=== PATIENT | female | born 1935 | race Caucasian/White ===

== ENCOUNTER → 2016-12-31 | Outpatient (CLI) | payer OTHER ==
[~2016-12-31] MED LIST: ASPI81TA28 PO; BISO5TAB3 PO; FMR25 PO; GABA-113 PO; ISOS-11 PO; LOSA50TA6 PO; LPT40 PO; NITRSPR6 PO
--- NOTE | 2016-12-31 10:15 | DIAGNOSTIC IMAGING REPORT ---
BRAIN WITHOUT CONTRAST HISTORY: 81 years-old Female HEADACHE acute headache with dizziness and loss of balance. History of breast cancer and melanoma COMPARISON: PET CT 04/22/2014. TECHNIQUE: Multiplanar multisequence MRI the brain was obtained without contrast FINDINGS: There is no restricted diffusion to suggest acute ischemia. Lobular morphology of the pituitary gland measures up to 1.2 x 1.7 x 1.9 cm. This demonstrates isointense T1 signal and slightly increased T1 signal suggesting underlying pituitary lesion. There is no abutment or displacement of the optic chiasm. No invasion of the adjacent structures identified. There is mild expansion of the sella. No cerebellar tonsillar herniation. No acute intracranial hemorrhage, midline shift, abnormal extra-axial collections or hydrocephalus. There is mild atrophy. Areas of periventricular, subcortical and deep white matter T2/FLAIR signal hyperintensities suggest chronic microvascular ischemic changes. The major flow voids at the level the skull base are patent. Remote lacunar infarctions involve the basal ganglia. Mastoid air cells and middle ear cavities are clear. Mild to moderate mucoperiosteal thickening of the left maxillary sinus. Mild ethmoid sinus disease also noted. The scalp and soft tissues are unremarkable. IMPRESSION: 1. No acute intracranial abnormality identified. No acute ischemia or hemorrhage. 2. Atrophy with chronic microvascular ischemic changes. 3. Lobular morphology of the pituitary gland overall measuring up to 1.9 cm suggests underlying pituitary mass lesion such as a macroadenoma among other etiologies. Follow-up MRI pituitary mass protocol with and without IV contrast is recommended to further evaluate. 4. Maxillary and ethmoid sinus disease as above. The above report was generated using voice recognition software. It may contain grammatical, syntax or spelling errors. Electronically signed by: Myron Walters M.D. 12/31/2016 10:13 AM Dictated Date/Time: 12/31/2016 10:06 AM
== END | disposition home or self-care (01) ==
LOC: C.MRIBC 07:51
PROVIDERS: ATTEND Psychiatry & Neurology Neurology
DX: R51 Headache (principal)

== ENCOUNTER → 2017-01-27 | Outpatient (CLI) | payer OTHER ==
[~2017-01-27] MED LIST changes: +GADAVIST IV PRN
--- NOTE | 2017-01-27 13:02 | DIAGNOSTIC IMAGING REPORT ---
BRAIN COMBO FOR PITUITARY CLINICAL HISTORY: Pituitary lesion abnormal MRI TECHNIQUE: Multi axial MRI acquisition. Specific images of the pituitary COMPARISON STUDY: 12/31/2016 FINDINGS: Diffusion-weighted images are negative for an acute ischemic event. Moderate chronic small vessel change of the periventricular deep white matter regions. Internal artery canals are symmetric. Enlarged heterogeneous pituitary maximum dimensions are 1.8 x 1.7 cm. This potential partial invasion invasion to the right cavernous sinus. Major vascular flow-voids appear intact. Postcontrast images in a dynamic fashion show him 1.6 cm subtle decrease in enhancement of the right central pituitary and base of the pituitary stock. This suggestive of pituitary macroadenoma. No additional postcontrast enhancement is identified. IMPRESSION: 1. Specific images of the pituitary confirm the presence of a 1.6 cm nodule showing a slight decrease in enhancement compared to the surrounding pituitary tissue. 2. Maximum dimension of the pituitary including included nodule is 1.8 x 1.7 cm. 3. 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 There is potential partial invasion of the right cavernous sinus, and partial involvement of the base of the pituitary stock. 5. Remainder the brain is unchanged from the prior study and shows no additional focus of postcontrast enhancement. 6. Stable moderate chronic small vessel change throughout both cerebral hemispheres. The above report was generated using voice recognition software. It may contain grammatical, syntax or spelling errors. Electronically signed by: Jose Perez M.D. 01/27/2017 1:00 PM Dictated Date/Time: 01/27/2017 12:54 PM
== END | disposition home or self-care (01) ==
LOC: C.MRIBC 11:15
PROVIDERS: ATTEND Psychiatry & Neurology Neurology
DX: R93.8 Abnormal findings on diagnostic imaging of other specified body structures (principal); E23.6 Other disorders of pituitary gland

== ENCOUNTER → 2017-03-11 | Outpatient (CLI) | payer OTHER ==
[~2017-03-11] MED LIST changes: -GADAVIST IV PRN
--- NOTE | 2017-03-14 15:50 | MAMMOGRAPHY REPORT ---
UNILATERAL RIGHT DIGITAL SCREENING MAMMOGRAM TOMOSYNTHESIS WITH CAD: 03/11/2017 CLINICAL HISTORY: Asymptomatic. Personal history of breast cancer. TECHNIQUE: Breast tomosynthesis in addition to standard 2D mammography was performed. Current study was also evaluated with a Computer Aided Detection (CAD) system. COMPARISON: Comparison is made to exams dated: 11/26/2015 mammogram and 03/15/2014 mammogram - [facility]. BREAST COMPOSITION: There are scattered areas of fibroglandular density in the right breast. FINDINGS: There are no suspicious masses, calcifications, or areas of architectural distortion noted in the right breast. There has been no significant interval change compared to prior exams. Status post left mastectomy. IMPRESSION: ACR BI-RADS CATEGORY 1: NEGATIVE There is no mammographic evidence of malignancy in the right breast. A 1 year screening mammogram is recommended. The patient will receive written notification of the results. Approximately 10% of breast cancers are not detected with mammography. A negative mammographic report should not delay biopsy if a clinically suggestive mass is present. Pooja South M.D. ah/:03/11/2017 14:28:[address] Judge: Leslie MESA)(Aurea), [facility] letter sent: Normal 1/2 BI-RADS Code: ACR BI-RADS Category 1: Negative
== END | disposition home or self-care (01) ==
LOC: C.MAMM 14:07
PROVIDERS: ATTEND Neuromusculoskeletal Medicine & OMM
DX: Z12.31 Encounter for screening mammogram for malignant neoplasm of breast (principal)

== ENCOUNTER → 2017-03-24 | Outpatient (CLI) | payer OTHER ==
--- NOTE | 2017-03-24 14:30 | MAMMOGRAPHY REPORT ---
ULTRASOUND OF RIGHT BREAST: 03/24/2017 CLINICAL HISTORY: The patient reports intermittent right medial and lateral breast pain for years. S he denies any palpable lumps or other complaints. History of left mastectomy. COMPARISON: Comparison is made to exams dated: 11/26/2015 mammogram, 03/11/2017 mammogram, and 015 mammogram - [facility]. TECHNIQUE: Real-time targeted ultrasound of the right breast was performed. FINDINGS: Real-time, high-resolution targeted ultrasound was performed of the areas of intermittent pain pointed out by the patient, in the right medial breast at approximately 3 to 4:00 far medially, approximately 10 cm from the nipple, as well as in the right lateral breast far laterally. Sonograph ically normal tissue is seen in these regions, without evidence of a mass or other suspicious sonogra phic abnormality. IMPRESSION: ACR BI-RADS CATEGORY 1: NEGATIVE No suspicious sonographic abnormalities at the sites of right breast pain pointed out by the patient. There is no sonographic evidence of malignancy. Recommend clinical follow-up for intermittent righ t breast pain, and recommend routine screening mammograms of the right breast 2018. The patient was verbally notified of the results with the assistance of a [employer] control operators supervisor over th e telephone. Pooja South M.D. /:03/24/2017 09:17:45 Employment Programs Analyst: Virgen MESA)(Aurea), [facility] letter sent: Normal 1/2 BI-RADS Code: ACR BI-RADS Category 1: Negative
== END | disposition home or self-care (01) ==
LOC: C.MAMM 08:46
PROVIDERS: ATTEND Internal Medicine Hematology & Oncology
DX: N64.4 Mastodynia (principal); Z85.3 Personal history of malignant neoplasm of breast

== ENCOUNTER → 2017-06-15 | Outpatient (CLI) | payer OTHER ==
[2017-06-15 14:38] LABS: HEMATOCRIT 31.3 % (37-47); HEMOGLOBIN 10.4 g/dL (12.0-16.0); MEAN CELL VOLUME 99.1 fL (80-100); MEAN CORPUSCULAR HEMOGLOBIN 32.9 pg (25-34); MEAN CORPUSCULAR HGB CONC 33.2 g/dl (32-36); MEAN PLATELET VOLUME 10.1 fL (7.4-10.4); PLATELET COUNT 249 K/uL (130-400); RED CELL DISTRIBUTION WIDTH CV 15.5 % (11.5-14.5); RED CELL DISTRIBUTION WIDTH SD 55.9 fL (36.4-46.3); WHITE BLOOD COUNT 5.04 K/uL (4.8-10.8)
[2017-06-15 14:48] LABS: AST/SGOT 19 U/L (15-37); BLOOD UREA NITROGEN 25 mg/dl (7-18); CALCIUM 8.5 mg/dl (8.5-10.1); CARBON DIOXIDE 27 mmol/L (21-32); GLUCOSE 100 mg/dl (70-99); POTASSIUM 4.3 mmol/L (3.5-5.1); SODIUM 139 mmol/L (136-145)
[2017-06-15 14:59] LABS: ALT/SGPT 25 U/L (12-78)
[2017-06-15 15:01] LABS: FOLLICLE STIMULAT HORMONE 69.84 IU/L; LUTEINIZING HORMONE 21.94 IU/L; PROLACTIN 58.43 ng/mL
== END | disposition home or self-care (01) ==
LOC: C.LAB1850 12:52
PROVIDERS: ATTEND Physician Assistant
DX: R93.8 Abnormal findings on diagnostic imaging of other specified body structures (principal); D35.2 Benign neoplasm of pituitary gland; I10 Essential (primary) hypertension; E78.5 Hyperlipidemia, unspecified; I20.9 Angina pectoris, unspecified

== ENCOUNTER 2018-10-27 22:11 | Observation (INO) ==
[2018-10-27] MEDS ORDERED: ASPIRIN 81 MG CHEW PO STA (22:43)
[2018-10-27] MEDS ORDERED: GI COCKTAIL ED USE PO ONE (22:43)
[2018-10-27] MEDS ORDERED: FAMOTIDINE 20MG/5ML IV PUSH IV STA (22:43)
[2018-10-27 23:09] LABS: Basophils # (auto) 0.01 K/uL (0-0.2); Basophils % (auto) 0.2 %; Eosinophils # (auto) 0.19 K/uL (0-0.5); Eosinophils % (auto) 4.1 %; Hematocrit (blood only) 33.3 % (37-47); Hemoglobin 10.9 g/dL (12.0-16.0); Immature Granulocytes # (auto) 0.01 K/uL (0.00-0.02); Immature Granulocytes % (auto) 0.2 %; Lymphocytes # (auto) 2.01 K/uL (1.2-3.4); Lymphocytes % (auto) 43.7 %; Mean Corpuscular Hgb Conc 32.7 g/dL (32-36); Mean Corpuscular Volume 100.3 fL (80-100); Mean Platelet Volume 9.8 fL (7.4-10.4); Monocytes # (auto) 0.16 K/uL (0.11-0.59); Monocytes % (auto) 3.5 %; Neutrophils # (auto) 2.22 K/uL (1.4-6.5); Neutrophils % (auto) 48.3 %; Platelet Count 224 K/uL (130-400); RDW Coefficient of Variation 15.3 % (11.5-14.5); RDW Standard Deviation 55.6 fL (36.4-46.3); Red Blood Count 3.32 M/uL (4.2-5.4)
[2018-10-27 23:28] LABS: Partial Thromboplastin Ratio 0.9; Partial Thromboplastin Time 23.5 Seconds (21.0-31.0); Prothrombin Time 10.3 Seconds (9.0-12.0)
[2018-10-27 23:32] LABS: Alanine Aminotransferase 20 U/L (12-78); Albumin Level 3.1 gm/dl (3.4-5.0); Aspartate Aminotransferase 17 U/L (15-37); BUN Creatinine Ratio 16.2 (10-20); Blood Urea Nitrogen 19 mg/dl (7-18); Calcium 8.5 mg/dl (8.5-10.1); Carbon Dioxide 27 mmol/L (21-32); Chloride 110 mmol/L (98-107); Creatinine Clr Calc Pharmacy 31.7 ml/min; Est GFR (African American) 49.6; Est GFR (Non-African American) 42.8; Glucose 123 mg/dl (70-99); Potassium 3.9 mmol/L (3.5-5.1); Sodium 141 mmol/L (136-145)
[2018-10-27 23:37] LABS: Albumin Globulin Ratio 0.6 (0.9-2); Alkaline Phosphatase 134 U/L (45-117); Bilirubin,Total 0.2 mg/dl (0.2-1); Globulin 4.8 gm/dl (2.5-4.0); Total Protein 7.9 gm/dl (6.4-8.2); Troponin I < 0.015 ng/ml (0-0.045)
--- NOTE | 2018-10-28 00:11 | Emergency Department Note ---
Entered by Zoila Dior acting as a scribe for History of Present Illness General Chief complaint: Chest Pain Stated complaint: CHEST PAIN Source: patient History of Present Illness Provider complaint: Chest Pain Onset (ago): hour(s) 6 Location: chest Radiation: extremity (Right arm ) Maximum Pain Intensity: 7 Quality: + dull Associated symptoms: + shortness of breath; no nausea/vomiting The patient is a 83 year old female who presents to the Emergency Room with complaints of dull chest pain that began about 6 hours prior. The patient requested her son as the senior technical business analyst. The patient's family states the patient's pain radiates from her chest down her left arm. The patient's family reports the patient is experiencing slight shortness of breath but denies any nausea/vomiting. The patient's family mentioned that she began experiencing this pain while walking but denies any falls. The patient's family noted that the patient has had pain like this before but the pain has never been this consistent. Home Medications Home Medications Medication Instructions Recorded Confirmed Type atorvastatin 40 mg PO HS #30 tab 11/10/17 10/27/18 Rx tramadol 50 mg PO TID PRN 04/10/18 10/27/18 History triamcinolone acetonide 1 applic TOPICAL DAILY 04/10/18 10/27/18 History bisoprolol fumarate 10 mg tablet 10 mg PO DAILY tab 09/15/18 10/27/18 History gabapentin 300 mg capsule 300 mg PO TID #360 cap 09/15/18 10/27/18 History letrozole 2.5 mg tablet 2.5 mg PO DAILY tab 09/15/18 10/27/18 History nifedipine ER 30 mg 30 mg PO BID 09/15/18 10/27/18 History tablet,extended release aspirin 81 mg tablet,delayed 81 mg PO DAILY #30 tab 10/17/18 10/27/18 Rx release isosorbide mononitrate 240 mg PO DAILY 10/27/18 10/27/18 History nitroglycerin [Nitrostat] 0.4 mg SUBLINGUAL UD PRN 10/27/18 10/27/18 History timolol maleate [Timoptic] 1 drp OPB BID 10/27/18 10/27/18 History Allergies Allergy/AdvReac Type Severity Reaction Status Date / Time ibuprofen Allergy Unknown Nausea Verified 10/27/18 23:01 Past Med/Surg History Medical History Arthritis (Acute) Benign colon polyp (Acute) Cutaneous skin tags (Acute) Diabetes mellitus, type 2 (Acute) Diverticular disease (Acute) Fracture of fifth metatarsal bone (Acute) HX: breast cancer (Acute) Hx of insomnia (Acute) Hyperlipidemia (Acute) Hypertension (Acute) Lumbar radiculopathy (Acute) Pulmonary fibrosis (Acute) Surgical History History of appendectomy (Acute) History of tonsillectomy (Acute) Hx of left mastectomy (Acute) Social History Preferred Language: British Communication Ability: Effective Communication Tools: IPad and Language Line Instructional Material Director Instructional Material Director Required: Yes Beliefs That Will Affect Care: None Current Living Situation: Alone Feels Safe at Home: Yes Smoking Status: Never smoker Second Hand Exposure: No ; Hx Alcohol Use: No Hx Substance Use: No Review of Systems See HPI for pertinent positives & negatives. and A total of 10 systems reviewed and were otherwise negative Physical Exam Vital Signs Vital Signs - 24 hr 10/27/18 22:11 10/27/18 22:36 10/27/18 23:11 Temperature 36.7 C Temperature Source Oral Sepsis Recent Fever Within 48 Hours No Sepsis New/Unexplained Change in Mental Status No Sepsis Action Taken by Nursing No Action Required Pulse Rate 66 Pulse Rate [Right Finger] 61 Pulse Rhythm [Right Finger] Regular Pulse Strength [Right Finger] Normal Respiratory Rate 16 20 Respiratory Effort / Characteristics Non-Labored Spontaneous Non-Labored Spontaneous Respiratory Depth Normal Normal Respiratory Pattern Regular Blood Pressure 156/72 H Blood Pressure [Right Arm] 167/86 H Blood Pressure Mean 100 Blood Pressure Mean [Right Arm] 113 Pulse Oximetry 94 94 Oxygen Delivery Method Room Air Room Air Room Air 10/28/18 00:05 Temperature Temperature Source Sepsis Recent Fever Within 48 Hours Sepsis New/Unexplained Change in Mental Status Sepsis Action Taken by Nursing Pulse Rate Pulse Rate [Right Finger] 61 Pulse Rhythm [Right Finger] Regular Pulse Strength [Right Finger] Normal Respiratory Rate 20 Respiratory Effort / Characteristics Respiratory Depth Normal Respiratory Pattern Blood Pressure Blood Pressure [Right Arm] 157/78 H Blood Pressure Mean Blood Pressure Mean [Right Arm] 104 Pulse Oximetry 94 Oxygen Delivery Method Room Air GENERAL: Awake, alert, in no distress. HENT: Normocephalic, atraumatic. EYES: Normal conjunctiva. Sclera non-icteric. RESPIRATORY: Clear to auscultation. No wheezes. Normal respiratory effort. CARDIAC: Normal rate. Normal rhythm. Extremities warm and well perfused. GI: Soft, non-distended. No tenderness to palpation. No rebound or guarding. RECTAL: Deferred. MUSCULOSKELETAL: Atraumatic. Chest examination reveals no tenderness. LOWER EXTREMITIES: Calves are equal size bilaterally and non-tender. Trace pedal edema. NEURO: Normal sensorium. No sensory or motor deficits noted. No facial droop. SKIN: Warm and dry. No rash or jaundice noted. Course 2236: Past medical records reviewed. The patient was evaluated in room A03. A complete history and physical exam was performed. 2356: I spoke with Dr. Soriano[facility] about the patient's case and he will accept the patient for further evaluation. Administered Medications Discontinued Medications Al Hydrox/Mg Hydrox/Simethicone () 1 dose PO ONE ONE Stop: 10/27/18 22:44 Last Admin: 10/27/18 23:11 Dose: Not Given Documented by: [id number] Aspirin (Aspirin Chew) 324 mg PO NOW STA Stop: 10/27/18 22:44 Last Admin: 10/27/18 23:10 Dose: 324 mg Documented by: [id number] Famotidine (Pepcid 20mg Iv Push) 20 mg IV ONE STA Stop: 10/27/18 22:44 Last Admin: 10/27/18 23:11 Dose: Not Given Documented by: [id number] Medical Decision Making Differential Diagnosis Differential diagnosis: Etiologies such as shingles, musculoskeletal pain, pericarditis, myocarditis, cardiac ischemia, pericardial tamponade, pneumonia, pneumothorax, pleural effusion, hemothorax, pleurisy, aortic pathology, pulmonary embolism, intra-abdominal process, as well as others were considered. Medical Records Attestation: I reviewed the patient's medical records. Home Medications Current Medication List: was personally reviewed by me Laboratory Data Result diagrams: 10/27/18 22:51 10/27/18 22:51 Lab Results 10/27/18 10/27/18 10/27/18 Range/Units 22:51 22:51 22:51 WBC 4.60 L (4.8-10.8) K/uL RBC 3.32 L (4.2-5.4) M/uL Hgb 10.9 L (12.0-16.0) g/dL Hct 33.3 L (37-47) % MCV 100.3 H (80-100) fL MCH 32.8 (25-34) pg MCHC 32.7 (32-36) g/dL RDW Std Deviation 55.6 H (36.4-46.3) fL RDW Coeff of [place] 15.3 H (11.5-14.5) % Plt Count 224 (130-400) K/uL MPV 9.8 (7.4-10.4) fL Immature Gran % (Auto) 0.2 % Neut % (Auto) 48.3 % Lymph % (Auto) 43.7 % Snyder % (Auto) 3.5 % Eos % (Auto) 4.1 % Baso % (Auto) 0.2 % Immature Gran # (Auto) 0.01 (0.00-0.02) K/uL Neut # (Auto) 2.22 (1.4-6.5) K/uL Lymph # (Auto) 2.01 (1.2-3.4) K/uL Snyder # (Auto) 0.16 (0.11-0.59) K/uL Eos # (Auto) 0.19 (0-0.5) K/uL Baso # (Auto) 0.01 (0-0.2) K/uL PT 10.3 (9.0-12.0) Seconds INR 1.0 (0.9-1.1) APTT 23.5 (21.0-31.0) Seconds PTT Ratio 0.9 Sodium 141 (136-145) mmol/L Potassium 3.9 (3.5-5.1) mmol/L Chloride 110 H (98-107) mmol/L Carbon Dioxide 27 (21-32) mmol/L Anion Gap 4.0 (3-11) BUN 19 H (7-18) mg/dl Creatinine 1.17 (0.6-1.2) mg/dl Est Cr Clr Drug Dosing 31.7 ml/min Est GFR ( Amer) 49.6 Est GFR (Non-Af Amer) 42.8 BUN/Creatinine Ratio 16.2 (10-20) Glucose 123 H (70-99) mg/dl Calcium 8.5 (8.5-10.1) mg/dl Total Bilirubin 0.2 (0.2-1) mg/dl AST 17 (15-37) U/L ALT 20 (12-78) U/L Alkaline Phosphatase 134 H (45-117) U/L Troponin I < 0.015 (0-0.045) ng/ml Total Protein 7.9 (6.4-8.2) gm/dl Albumin 3.1 L (3.4-5.0) gm/dl Globulin 4.8 H (2.5-4.0) gm/dl Albumin/Globulin Ratio 0.6 L (0.9-2) Lipase 181 (73-393) U/L Imaging Data Attestation: I personally reviewed and interpreted this imaging study as follows: My Impression: Decreased aeration. No bony abnormality. No pneumonia. No pneumothorax. Fibrotic changes. ECG Data Attestation: I personally reviewed and interpreted this ECG as follows: Indication: chest pain Rate (beats per minute): 70 Rhythm: normal sinus Findings: + other (Normal Intervals); no PVC, no ST depression and no ST elevation Comparison ECG Date: from (11/09/2017) Change: no significant change Blood Pressure Blood Pressure Findings: Elevated blood pressure Blood Pressure Disposition: Referred to patients primary care provider JESSICA Valdes Patient is an 83-year-old female with a history of diabetes, hypertension, hyperlipidemia presenting today with her son complaining of chest pain started around 4 PM while she was downtown walking. Pain is been fairly consistent. Does improve slightly with 4 doses of nitroglycerin prior to arrival but hen returns. Takes baby aspirin daily given full dose aspirin upon arrival here. No significant abdominal tenderness appreciated this time no trauma reported. Some radiation to the left arm is reported. Did review records showing evidence of a cardiac catheterization in March of this year with mild disease. Lower suspicion this represents acute dissection or PE at this time. Chest x-ray is no evidence of pneumonia or pneumothorax. Doubt rib fracture with trauma hx. Did order GI cocktail and Pepcid to see if that help with her symptoms but the patient declined these; still could have gastric component. EKG and troponin were completed as well as basic laboratory studies. Patient be is primarily British and did offer senior technical business analyst service so she felt most comfortable with her son translating. Anemia and leukopenia are stable. No evidence of acute hepatitis or pancreatitis. Troponin is undetectable at this point. Given the patient's age and prior cardiac risk factors does have a moderate risk heart score. Discussed with patient and son options at this point recommending observation stay overnight versus more risky continued outpatient follow-up. Patient states the pain seems different and longer than before and after discussion with her discussed with the hospitalist to observe her overnight and see if anything else can be found as cause. Impression & Plan Chest pain, unspecified Discharge Plan Visit Data Chief Complaint: Chest Pain Stated Complaint: CHEST PAIN ED Provider: Aldo Nick Discharge Problem: Chest pain, unspecified Patient Disposition: Home - Self-Care Forms Stand Alone Forms: [facility], Important Visit Information Prescriptions Prescriptions: No Action aspirin 81 mg tablet,delayed release (DR/EC) 81 mg PO DAILY Qty: 30 RF: 5 gabapentin 300 mg capsule 300 mg PO TID Qty: 360 RF: 0 bisoprolol fumarate 10 mg tablet 10 mg PO DAILY RF: 0 letrozole 2.5 mg tablet 2.5 mg PO DAILY RF: 0 atorvastatin 40 mg Tablet 40 mg PO HS Qty: 30 RF: 3 isosorbide mononitrate 120 mg tablet extended release 24 hr 240 mg PO DAILY RF: 0 nitroglycerin [Nitrostat] 0.4 mg tablet, sublingual 0.4 mg sublingual UD PRN (Reason: Chest Pain) RF: 0 timolol maleate [Timoptic] 0.5 % drops 1 drp OPB BID RF: 0 tramadol 50 mg Tablet 50 mg PO TID PRN (Reason: Pain) RF: 0 triamcinolone acetonide 0.1 % Cream 1 applic TOPICAL DAILY RF: 0 nifedipine 30 mg tablet extended release 30 mg PO BID RF: 0 Referrals Referrals: Kingston Garcia DO [Primary Care Provider] - Discharge Problem: Chest pain, unspecified Qualifiers: Chest pain type: unspecified Qualified Code(s): R07.9 - Chest pain, unspecified The scribe's documentation has been prepared under my direction and personally reviewed by me in its entirety. I confirm that the note above accurately reflects all work, treatment, procedures, and medical decision making performed by me.
[2018-10-28] MEDS ORDERED: MoRPHine SULFATE 2 MG/ML CARP IV PRN (00:23)
[2018-10-28] MEDS ORDERED: ONDANSETRON INJ 2 MG/ML 2 ML VIAL IV PRN (00:23)
[2018-10-28] MEDS ORDERED: TRAMADOL HCL 50 MG TABLET PO PRN (00:23)
[2018-10-28] MEDS ORDERED: ACETAMINOPHEN 325 MG TAB PO PRN (00:23)
--- NOTE | 2018-10-28 00:49 | History & Physical Report ---
Date of Service October 28, 2018 Assessment & Plan (1) Chest pain, unspecified: Obs tele serial trops prn NTG Cardiology consult. Continue isosorbide. Present on Admission?: Yes (2) CAD (coronary artery disease): Continue aspirin (3) Hypertension: Continue Bisoprolol and nifedipine (4) Hyperlipidemia: Continue atorvastatin. (5) Lumbar radiculopathy: Continue prn tramadol History of Present Illness 83 y/o Beninese speaking female presented to the Emergency Room with dull chest pain radiating to left arm of 6 hours duration. Patients son is present and is translating. She has been having exertional chest pain and SOB for 2-3 weeks. No F/C, cough, N/V/D, syncope or near syncope. As I am seeing the patient she reports that chest pain has resolved. Primary Care Provider: Kingston Garcia DO Allergies Allergy/AdvReac Type Severity Reaction Status Date / Time ibuprofen Allergy Unknown Nausea Verified 10/27/18 23:01 Home Medications Home Medications Medication Instructions Recorded Confirmed Type atorvastatin 40 mg PO HS #30 tab 11/10/17 10/27/18 Rx tramadol 50 mg PO TID PRN 04/10/18 10/27/18 History triamcinolone acetonide 1 applic TOPICAL DAILY 04/10/18 10/27/18 History bisoprolol fumarate 10 mg tablet 10 mg PO DAILY tab 09/15/18 10/27/18 History gabapentin 300 mg capsule 300 mg PO TID #360 cap 09/15/18 10/27/18 History letrozole 2.5 mg tablet 2.5 mg PO DAILY tab 09/15/18 10/27/18 History nifedipine ER 30 mg 30 mg PO BID 09/15/18 10/27/18 History tablet,extended release aspirin 81 mg tablet,delayed 81 mg PO DAILY #30 tab 10/17/18 10/27/18 Rx release isosorbide mononitrate 240 mg PO DAILY 10/27/18 10/27/18 History nitroglycerin [Nitrostat] 0.4 mg SUBLINGUAL UD PRN 10/27/18 10/27/18 History timolol maleate [Timoptic] 1 drp OPB BID 10/27/18 10/27/18 History Past Med/Surg History Medical History Arthritis (Acute) Benign colon polyp (Acute) Cutaneous skin tags (Acute) Diabetes mellitus, type 2 (Acute) Diverticular disease (Acute) Fracture of fifth metatarsal bone (Acute) HX: breast cancer (Acute) Hx of insomnia (Acute) Hyperlipidemia (Acute) Hypertension (Acute) Lumbar radiculopathy (Acute) Pulmonary fibrosis (Acute) Surgical History History of appendectomy (Acute) History of tonsillectomy (Acute) Hx of left mastectomy (Acute) Social History Preferred Language: Beninese Communication Ability: Effective Communication Ability Comment: Son was present and translated. Communication Tools: IPad, Language Line Loading Checker and Other Loading Checker Required: Yes Beliefs That Will Affect Care: None Current Living Situation: Alone Feels Safe at Home: Yes Smoking Status: Never smoker Second Hand Exposure: No ; Hx Alcohol Use: No Hx Substance Use: No Review of Systems Review of Systems: NEEDS EDITING Constitutional- no fever; no weight loss Eyes- no acute visual changes ENT- no sinus drainage; no pharyngitis Pulmonary- As in HPI Cardiac- As in HPI GI- no nausea, no vomiting, no diarrhea, no melena, no hematochezia - no dysuria, no hematuria Musculoskeletal- no arthralgias, no myalgias Derm- no rashes, no new skin lesions, no changing skin lesions Hematologic- no unusual bruising, no unusual bleeding Lymphatics- no adenopathy Endocrine- no polyuria or polydipsia; no heat or cold intolerance Neuro- no headaches, no focal neurologic symptoms Psych- no anxiety, no depression Physical Exam Physical Exam: NEEDS EDITING General- adult female, NAD Head- atraumatic Eyes- PERRL, EOMI, anicteric ENT- oropharynx clear Neck- supple, no JVD, no adenopathy, no thyromegaly. Lungs- clear to auscultation and percussion Heart- regular rhythm; no murmur, no gallop, no rub appreciated, no reproducible chest pain. Abdomen- normal bowel sounds, soft, nontender. Extremities- trace ankle edema, no calf tenderness; peripheral pulses intact Neuro- alert, oriented x 3; PERRL, EOMI; no facial palsy; no dysarthria. 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 Skin- warm & dry Results & Data Vital Signs (Past 12 Hours) Vital Signs Temp Pulse Pulse Resp BP BP Pulse Ox 10/28/18 00:05 61 20 157/78 H 94 10/27/18 23:11 61 20 167/86 H 94 10/27/18 22:11 36.7 C 66 16 156/72 H 94 Laboratory Results Laboratory Results WBC 4.60 K/uL (4.8-10.8) L 10/27/18 22:51 RBC 3.32 M/uL (4.2-5.4) L 10/27/18 22:51 Hgb 10.9 g/dL (12.0-16.0) L 10/27/18 22:51 Hct 33.3 % (37-47) L 10/27/18 22:51 MCV 100.3 fL (80-100) H 10/27/18 22:51 MCH 32.8 pg (25-34) 10/27/18 22:51 MCHC 32.7 g/dL (32-36) 10/27/18 22:51 RDW Std Deviation 55.6 fL (36.4-46.3) H 10/27/18 22:51 RDW Coeff of [place] 15.3 % (11.5-14.5) H 10/27/18 22:51 Plt Count 224 K/uL (130-400) 10/27/18 22:51 MPV 9.8 fL (7.4-10.4) 10/27/18 22:51 Immature Gran % (Auto) 0.2 % 10/27/18 22:51 Neut % (Auto) 48.3 % 10/27/18 22:51 Lymph % (Auto) 43.7 % 10/27/18 22:51 [place] % (Auto) 3.5 % 10/27/18 22:51 Eos % (Auto) 4.1 % 10/27/18 22:51 Baso % (Auto) 0.2 % 10/27/18 22:51 Immature Gran # (Auto) 0.01 K/uL (0.00-0.02) 10/27/18 22:51 Neut # (Auto) 2.22 K/uL (1.4-6.5) 10/27/18 22:51 Lymph # (Auto) 2.01 K/uL (1.2-3.4) 10/27/18 22:51 [place] # (Auto) 0.16 K/uL (0.11-0.59) 10/27/18 22:51 Eos # (Auto) 0.19 K/uL (0-0.5) 10/27/18 22:51 Baso # (Auto) 0.01 K/uL (0-0.2) 10/27/18 22:51 PT 10.3 Seconds (9.0-12.0) 10/27/18 22:51 INR 1.0 (0.9-1.1) 10/27/18 22:51 APTT 23.5 Seconds (21.0-31.0) 10/27/18 22:51 PTT Ratio 0.9 10/27/18 22:51 Sodium 141 mmol/L (136-145) 10/27/18 22:51 Potassium 3.9 mmol/L (3.5-5.1) 10/27/18 22:51 Chloride 110 mmol/L (98-107) H 10/27/18 22:51 Carbon Dioxide 27 mmol/L (21-32) 10/27/18 22:51 Anion Gap 4.0 (3-11) 10/27/18 22:51 BUN 19 mg/dl (7-18) H 10/27/18 22:51 Creatinine 1.17 mg/dl (0.6-1.2) 10/27/18 22:51 Est Cr Clr Drug Dosing 31.7 ml/min 10/27/18 22:51 Est GFR ( Amer) 49.6 10/27/18 22:51 Est GFR (Non-Af Amer) 42.8 10/27/18 22:51 BUN/Creatinine Ratio 16.2 (10-20) 10/27/18 22:51 Glucose 123 mg/dl (70-99) H 10/27/18 22:51 Calcium 8.5 mg/dl (8.5-10.1) 10/27/18 22:51 Total Bilirubin 0.2 mg/dl (0.2-1) 10/27/18 22:51 AST 17 U/L (15-37) 10/27/18 22:51 ALT 20 U/L (12-78) 10/27/18 22:51 Alkaline Phosphatase 134 U/L (45-117) H 10/27/18 22:51 Troponin I < 0.015 ng/ml (0-0.045) 10/27/18 22:51 Total Protein 7.9 gm/dl (6.4-8.2) 10/27/18 22:51 Albumin 3.1 gm/dl (3.4-5.0) L 10/27/18 22:51 Globulin 4.8 gm/dl (2.5-4.0) H 10/27/18 22:51 Albumin/Globulin Ratio 0.6 (0.9-2) L 10/27/18 22:51 Lipase 181 U/L (73-393) 10/27/18 22:51 Code Status & VTE Plan VTE Prophylaxis Plan VTE Prophylaxis will be ordered: Yes PG Care Time/CCT Total # of Minutes Spent Total Time Spent: 45 Total Time Spent with Patient: Total time spent is greater than 50% in coordination of care (as documented) at patient's floor/unit and/or counseling patient: (1) Chest pain, unspecified Chest pain type: unspecified Qualified Code(s): R07.9 - Chest pain, unspecified
[2018-10-28] MEDS ORDERED: NITROGLYCERIN SL 0.4 MG/TAB TAB SL PRN (01:17)
[2018-10-28] MEDS: NIFEdipine EXTENDED REL 30 MG TABCR PO SCH ×3 (02:27→20:05)
[2018-10-28] MEDS: GABAPENTIN 300 MG CAP PO SCH ×5 (02:27→20:16)
[2018-10-28] MEDS ORDERED: PNEUMOCOCCAL POLYSACCHARIDES 25 MCG/0.5 ML VIAL/SYR IM ONE (02:30)
[2018-10-28] MEDS ORDERED: PNEUMOCOCCAL ADMINISTRATION CHARGE ONE (02:30)
--- NOTE | 2018-10-28 05:17 | XRay Report ---
XR chest 1V portable CLINICAL HISTORY: 83 years-old Female presenting with midsternal chest pain, radiating down the left arm, dizziness and lightheadedness. TECHNIQUE: Portable upright AP view of the chest was obtained. COMPARISON: 11/09/2017. FINDINGS: Atherosclerosis of the aortic arch. Cardiac silhouette mildly enlarged. Mildly low lung volumes with hypoventilatory changes. Mild pulmonary vascular prominence. Minimal basilar opacities. No pleural ef fusion or pneumothorax. Degenerative changes of the thoracic spine. Osteopenia. Calcification project s over the left upper quadrant. IMPRESSION: 1. Mild cardiomegaly and mild volume overload. 2. Hypoventilatory changes with minimal bibasilar atelectasis. Electronically signed by: Neto Muñoz M.D. 10/28/2018 5:14 AM
[2018-10-28 07:15] LABS: Hematocrit (blood only) 32.8 % (37-47); Hemoglobin 10.6 g/dL (12.0-16.0); Mean Corpuscular Hgb Conc 32.3 g/dL (32-36); Mean Corpuscular Volume 100.6 fL (80-100); Mean Platelet Volume 9.9 fL (7.4-10.4); Platelet Count 206 K/uL (130-400); RDW Coefficient of Variation 15.3 % (11.5-14.5); RDW Standard Deviation 55.9 fL (36.4-46.3); Red Blood Count 3.26 M/uL (4.2-5.4); White Blood Count 4.34 K/uL (4.8-10.8)
[2018-10-28] MEDS ORDERED: [UNRECOGNIZED DRUG - REMARK] SCH (07:15)
[2018-10-28 07:33] LABS: BUN Creatinine Ratio 16.9 (10-20); Calcium 8.3 mg/dl (8.5-10.1); Creatinine Clr Calc Pharmacy 37.9 ml/min; Est GFR (African American) 62.2; Est GFR (Non-African American) 53.6; Potassium 3.8 mmol/L (3.5-5.1)
[2018-10-28] MEDS: LETROZOLE 2.5 MG TAB PO SCH (08:17)
[2018-10-28] MEDS: ISOSORBIDE MONO EXTENDED REL 60 MG TABCR PO SCH (08:18)
[2018-10-28] MEDS: ASPIRIN 81 MG ECTAB PO SCH (08:18)
[2018-10-28] MEDS: HEPARIN SOD 5,000 UNIT/0.5 ML VIAL SQ SCH ×2 (08:21→20:07)
--- NOTE | 2018-10-28 10:37 | Cardiology Consultation ---
Date of Consultation October 28, 2018 Assessment & Plan (1) Chest pain, unspecified: I do not believe her chest pain is related to cardiac ischemia. She has had a very extensive workup over several years none of which has demonstrated occlusive coronary disease. Her symptoms appear to have been chronic over that period of time and only change in the sense that they are more prolonged in nature. Despite hours of symptoms she has not had any elevation in her biomarkers. I do not think we need to intensify her antianginal regimen as I do not believe she has occlusive coronary disease. I think seeking alternative etiologies for her chest pain would be good idea. She does have a history abdominal complaints and perhaps a trial of proton pump inhibitors would be helpful. Also, simple analgesics may improve her symptoms which are reproducible on examination. She has a history of a left mastectomy and perhaps in some fashion this is contributed to her symptoms over the years as well especially given her arm and left shoulder discomfort. (2) CAD (coronary artery disease): She has undergone coronary angiography on 2 occasions. The most recent was earlier this year. Real-time evaluation of both the OM2 and right coronary artery did not demonstrate any flow limitation. She fact of [place] does not have obstructive coronary disease. She should continue standard risk factor modification with her high-dose atorvastatin and daily aspirin. (3) Palpitations: She reports a history of persistent tachycardia. However, outpatient monitoring for the symptoms is not revealed any significant tachycardia. In 2013 she did undergo monitoring in [place] which did demonstrate several beats of PAT. However, her symptoms of palpitations and tachycardia at that time correlated with a sinus rhythm at a heart rate in the 70s. This is consistent with her history currently. Do not believe she requires any additional monitoring in this regard. Her telemetry during hospitalization is been enti rely normal without arrhythmia. History of Present Illness Reason for Consultation: Chest pain Requesting Physician: Christie Attending Physician: Jefferson Dubois History of Present Illness The patient is an 83-year-old woman who speaks only Scottish. Today's interview with facilitated with a call center coordinator. It seems that she has been having symptoms chest discomfort for many years. This discomfort is primarily characterized by sense of pain in the left and central precordium. It tends to radiate to the left shoulder as well. The symptoms are fairly random in onset but can occasionally be associated with activity. Patient states that in general these episodes have been relatively brief over the years and she commonly will take sublingual nitroglycerin with relief. More recently, she states that the symptoms have become more prolonged in nature and respond poorly to nitroglycerin. Yesterday she had an episode that did not resolve with nitroglycerin. Nitroglycerin appear to have some mild defect but in general she had symptoms of this chest discomfort for many hours. In fact, she states her symptoms never fully resolved and she is still having symptoms of chest and left shoulder discomfort. There is not appear to be a positional component. She states that she does have some mild dyspnea at times associated with the discomfort but no pleuritic pain. Outside of the more prolonged nature of the episodes in the less responsiveness to nitroglycerin, they do not appear to have changed significantly over several years. Additionally, she does report some symptoms of palpitations and tachycardia recently. She appears to have a remote history of SVT detected on Holter monitor. She states this problem dates back farther than her symptoms of chest discomfort. She states that over the past week she feels as if her heart has been racing continuously. She does have a home monitor in the form of a blood pressure machine. She states that when her heart is racing her pulse is in the 70s Allergies Allergy/AdvReac Type Severity Reaction Status Date / Time ibuprofen Allergy Unknown Nausea Verified 10/27/18 23:01 Home Medications Home Medications Medication Instructions Recorded Confirmed Type atorvastatin 40 mg PO HS #30 tab 11/10/17 10/27/18 Rx tramadol 50 mg PO TID PRN 04/10/18 10/27/18 History triamcinolone acetonide 1 applic TOPICAL DAILY 04/10/18 10/27/18 History bisoprolol fumarate 10 mg tablet 10 mg PO DAILY tab 09/15/18 10/27/18 History gabapentin 300 mg capsule 300 mg PO TID #360 cap 09/15/18 10/27/18 History letrozole 2.5 mg tablet 2.5 mg PO DAILY tab 09/15/18 10/27/18 History nifedipine ER 30 mg 30 mg PO BID 09/15/18 10/27/18 History tablet,extended release aspirin 81 mg tablet,delayed 81 mg PO DAILY #30 tab 10/17/18 10/27/18 Rx release isosorbide mononitrate 240 mg PO DAILY 10/27/18 10/27/18 History nitroglycerin [Nitrostat] 0.4 mg SUBLINGUAL UD PRN 10/27/18 10/27/18 History timolol maleate [Timoptic] 1 drp OPB BID 10/27/18 10/27/18 History Patient History Medical History Arthritis (Acute) Benign colon polyp (Acute) Cutaneous skin tags (Acute) Diabetes mellitus, type 2 (Acute) Diverticular disease (Acute) Fracture of fifth metatarsal bone (Acute) HX: breast cancer (Acute) Hx of insomnia (Acute) Hyperlipidemia (Acute) Hypertension (Acute) Lumbar radiculopathy (Acute) Pulmonary fibrosis (Acute) Surgical History History of appendectomy (Acute) History of tonsillectomy (Acute) Hx of left mastectomy (Acute) Social History Preferred Language: Scottish Communication Ability: Effective Communication Tools: IPad, Facial Expression, Physical Gestures, Sign Language and Lip Movement/Reading Service Greeter Required: Yes and Voice Beliefs That Will Affect Care: None Current Living Situation: Alone Feels Safe at Home: Yes Smoking Status: Never smoker Second Hand Exposure: No ; Hx Alcohol Use: No Hx Substance Use: No Review of Systems Review of Systems: All systems reviewed & are unremarkable except as noted in HPI & below She also reports some symptoms of dizziness and lightheadedness. She thinks these are worse this week. She has not had syncope. She does report some symptoms of orthopnea on occasion. This is not appear to be new for her. She has some lower extremity edema which is worse at the end of the day and improved in the morning. She denies significant indigestion. She does have some occasional abdominal discomfort and chronic constipation. Physical Exam Physical Exam: She is alert and oriented x3. Mood affect appear normal. She a nswered all questions appropriately. HEENT: Sclerae are anicteric. Pupils are equal and reactive to light and accommodation. Extraocular movements were intact. Neuro: Cranial nerves intact Neck: Examination of the submandibular region did not reveal any significant lymphadenopathy. Carotids are palpable bilaterally and free of bruits on auscultation. There was no evidence of jugular venous distention. The thyroid was not enlarged. Lungs: Lungs are clear to auscultation bilaterally. There are no rales wheezes or rhonchi. She has normal respiratory effort without use of accessory muscl es. There is normal pulmonary excursion. Cardiac: The rhythm was regular. S1 and S2 were normal. There are no murmurs on examination. The PMI was not markedly displaced on palpation. Chest: Tender to palpation over the precordium. Abdomen: The abdomen was soft and nontender. Extremities: Patient has bilateral radial pulses that are equal in intensity. There is no evidence cyanosis or clubbing. There was no evidence of significant peripheral edema bilaterally. Skin: There are no rashes noted on examination today. Results & Data Vital Signs (Past 12 Hours) Vital Signs Temp Pulse Pulse Resp BP Pulse Ox Pulse Ox 10/28/18 07:12 36.6 C 52 L 16 125/62 97 10/28/18 03:07 36.8 C 53 L 16 154/60 H 92 10/28/18 01:20 59 L 10/28/18 01:17 92 92 10/28/18 01:15 36.8 C 59 L 18 166/64 H 92 10/28/18 00:52 60 20 171/104 H 93 10/28/18 00:05 61 20 157/78 H 94 10/27/18 23:11 61 20 167/86 H 94 Laboratory Results Abnormal Lab Results 10/27/18 10/27/18 10/27/18 22:51 22:51 22:51 WBC 4.60 L RBC 3.32 L Hgb 10.9 L Hct 33.3 L MCV 100.3 H MCH 32.8 MCHC 32.7 RDW Std Deviation 55.6 H RDW Coeff of [place] 15.3 H Plt Count 224 MPV 9.8 Immature Gran % (Auto) 0.2 Neut % (Auto) 48.3 Lymph % (Auto) 43.7 [place] % (Auto) 3.5 Eos % (Auto) 4.1 Baso % (Auto) 0.2 Immature Gran # (Auto) 0.01 Neut # (Auto) 2.22 Lymph # (Auto) 2.01 [place] # (Auto) 0.16 Eos # (Auto) 0.19 Baso # (Auto) 0.01 PT 10.3 INR 1.0 APTT 23.5 PTT Ratio 0.9 Sodium 141 Potassium 3.9 Chloride 110 H Carbon Dioxide 27 Anion Gap 4.0 BUN 19 H Creatinine 1.17 Est Cr Clr Drug Dosing 31.7 Est GFR ( Amer) 49.6 Est GFR (Non-Af Amer) 42.8 BUN/Creatinine Ratio 16.2 Glucose 123 H Calcium 8.5 Total Bilirubin 0.2 AST 17 ALT 20 Alkaline Phosphatase 134 H Troponin I < 0.015 Total Protein 7.9 Albumin 3.1 L Globulin 4.8 H Albumin/Globulin Ratio 0.6 L Lipase 181 10/28/18 10/28/18 10/28/18 06:50 06:50 06:50 WBC 4.34 L RBC 3.26 L Hgb 10.6 L Hct 32.8 L MCV 100.6 H MCH 32.5 MCHC 32.3 RDW Std Deviation 55.9 H RDW Coeff of [place] 15.3 H Plt Count 206 MPV 9.9 Immature Gran % (Auto) Neut % (Auto) Lymph % (Auto) [place] % (Auto) Eos % (Auto) Baso % (Auto) Immature Gran # (Auto) Neut # (Auto) Lymph # (Auto) [place] # (Auto) Eos # (Auto) Baso # (Auto) PT INR APTT PTT Ratio Sodium 142 Potassium 3.8 Chloride 111 H Carbon Dioxide 27 Anion Gap 4.0 BUN 16 Creatinine 0.97 Est Cr Clr Drug Dosing 37.9 Est GFR ( Amer) 62.2 Est GFR (Non-Af Amer) 53.6 BUN/Creatinine Ratio 16.9 Glucose 93 Calcium 8.3 L Total Bilirubin AST ALT Alkaline Phosphatase Troponin I < 0.015 Total Protein Albumin Globulin Albumin/Globulin Ratio Lipase Diagnostic Findings Chest x-ray at the time of admission suggested some mild volume overload. Echocardiogram performed on 02/24/2017 revealed preserved LV systolic function without wall motion abnormality. She did have a patent foramina ovale in some very minor valvular heart disease. ECG Additional Comments: EKG obtained at the time admission was normal. PG Care Time/CCT Total # of Minutes Spent Total Time Spent with Patient: Total time spent is greater than 50% in coordination of care (as documented) at patient's floor/unit and/or counseling patient: (1) Chest pain, unspecified Chest pain type: unspecified Qualified Code(s): R07.9 - Chest pain, unspecified
[2018-10-28] MEDS: METOPROLOL SUCC 50MG EXT REL TAB PO SCH (13:11)
[2018-10-28] MEDS: TIMOLOL MALEATE 0.25% OP SOLN 5 ML BTL OPB SCH ×2 (13:11→20:06)
[2018-10-28] MEDS ORDERED: OPTIRAY 320 125ml IV PRN (15:12)
--- NOTE | 2018-10-28 15:28 | CT Scan Report ---
CT angio chest PE protocol CLINICAL HISTORY: 83 years-old Female presenting with pleuritic chest pain, recent travel, clinical c oncern for pulmonary embolus. TECHNIQUE: Multidetector CT angiography of the chest was performed after administration of intravenou s contrast. 3-D volumetric and/or maximum intensity projection (MIP) images were subsequently reconst ructed for review. IV contrast: 119 mL of Optiray 320. One or more dose lowering techniques were used consistent with the principles of ALARA (as low as reasonably achievable), including automatic expos ure control, mA or kV adjustment to individual patient size, and/or use of iterative reconstruction. COMPARISON: 07/13/2014. CT DOSE (mGy.cm): The estimated cumulative dose is 330.85 mGy.cm. FINDINGS: [employer] Manager topogram: Unremarkable. Pulmonary vasculature: The study is adequate for assessment of the pulmonary vascular tree. No filling defect within the pul monary arteries to suggest embolus. Main pulmonary artery is not enlarged. No flattening of the inter ventricular septum. No intracardiac filling defect. No reflux of contrast into the hepatic veins. Remaining chest: Soft tissues: Multiple nodules in the thyroid. Left mastectomy. Prominent bilateral hilar lymph nodes . Numerous subcentimeter mediastinal lymph nodes, some of which are calcified. No supraclavicular or internal mammary lymphadenopathy. Atherosclerosis of the aorta. Tortuosity of the branch vessels of t he aorta could suggest chronic hypertension. Multichamber enlargement of the heart. Coronary artery c alcification. Trace left pleural effusion. Upper abdomen normal. Lungs and airways: No pneumothorax. Central airways patent. Pulmonary arteries mildly enlarged relati ve to adjacent bronchi. And mild interlobular septal thickening. Mosaic attenuation throughout the chao ngs. Patchy groundglass density may also be superimposed on mosaic attenuation. Minimal dependent viktor nges likely atelectasis. Respiratory motion artifact degrades evaluation of the lung parenchyma to a moderate degree. Musculoskeletal: Degenerative changes of the spine. IMPRESSION: 1. No evidence of pulmonary embolus. 2. Cardiomegaly with mild volume overload and congestive change. Developing pulmonary edema is suspe cted. 3. Trace left pleural effusion. 4. Prominent bilateral hilar lymph nodes likely reactive. 5. Postsurgical changes of left mastectomy. Electronically signed by: Neto Muñoz M.D. 10/28/2018 3:26 PM
[2018-10-28] MEDS: SODIUM CHLORIDE 0.9% 1000ML 1,000 ML IV SCH (16:01)
--- NOTE | 2018-10-28 20:27 | Hospitalist Progress Note ---
Date of Service October 28, 2018 Assessment & Plan (1) Chest pain, unspecified: All troponins negative. Tele normal. She has had multiple caths in the last several years all of which showed nonobstructive CAD only. She has had frequent outpatient visits for this pain without full explanation of the symptoms and without full resolution. The pain is not reproducible on exam making musculoskeletal etiology unlikely. Since she had traveled to [place] recently I obtained CTA chest -- this was negative for PE. The report mentions ?pulmonary edema but she has no clinical evidence of such. Seen by cardiology - Dr Almaraz felt her pain was noncardiac in origin. Since she had recurrent pain late in the day will keep patient overnight and observe until the am. (2) CAD (coronary artery disease): Continue aspirin Continue statin Continue beta jonah Nonobstructive on last 2 cardiac caths (3) Hypertension: Continue Bisoprolol and nifedipine Control adequate (4) Hyperlipidemia: Continue atorvastatin (5) Lumbar radiculopathy: Continue prn tramadol NO issues today (6) Chronic kidney disease, stage 3a: Creatinine stable/at baseline Hydrate following CT scan to ensure no contrast-induced nephropathy (7) Leukopenia: Check b12/folate in am son updated d/c home in AM Subjective patient's pain resolved overnight, then returned later today. denies burping, belching, classic heartburn symptoms, muscle pain of chest wall, dyspnea, cough tele wnl overnight son updated at bedside late in the day patient reports having traveled to [place] ([place]) this summer and returned to [facility] in September Review of Systems Constitutional: no fever, no chills and no anorexia Respiratory: + pain on inspiration; no cough, no dyspnea and no dyspnea on exertion Cardiovascular: as per Subjective / HPI and + chest pain Gastrointestinal: no abdominal pain Physical Exam Constitutional: well developed and well nourished; no acute distress history obtained via [employer] via [employer] services ENMT: external ear and nose normal, oropharynx normal Respiratory: normal respiratory effort, lungs clear to auscultation Cardiovascular: Rate/Rhythm: regular rate and regular rhythm Heart Sounds: normal S1 and normal S2 Vessels: posterior tibial pulses present and dorsalis pedis pulses present; no JVD Extremities: no edema Chest (Breasts): Additional Comments: no reproducible chest wall tenderness to palpation Gastrointestinal (Abdomen): normal bowel sounds, soft, nontender, no hepatosplenomegaly Psychiatric: A+Ox3, euthymic affect Results & Data Vital Signs (Past 12 Hours) Vital Signs Temp Pulse Pulse Resp BP Pulse Ox 10/28/18 19:55 156/88 H 10/28/18 19:31 36.6 C 59 L 18 163/80 H 92 10/28/18 15:53 36.7 C 56 L 18 139/81 95 10/28/18 15:44 59 L 10/28/18 11:40 36.9 C 59 L 16 131/77 96 Laboratory Results Laboratory Results - last 24 hr 10/27/18 10/27/18 10/27/18 22:51 22:51 22:51 WBC 4.60 L RBC 3.32 L Hgb 10.9 L Hct 33.3 L MCV 100.3 H MCH 32.8 MCHC 32.7 RDW Std Deviation 55.6 H RDW Coeff of [place] 15.3 H Plt Count 224 MPV 9.8 Immature Gran % (Auto) 0.2 Neut % (Auto) 48.3 Lymph % (Auto) 43.7 Gray % (Auto) 3.5 Eos % (Auto) 4.1 Baso % (Auto) 0.2 Immature Gran # (Auto) 0.01 Neut # (Auto) 2.22 Lymph # (Auto) 2.01 Gray # (Auto) 0.16 Eos # (Auto) 0.19 Baso # (Auto) 0.01 PT 10.3 INR 1.0 APTT 23.5 PTT Ratio 0.9 Sodium 141 Potassium 3.9 Chloride 110 H Carbon Dioxide 27 Anion Gap 4.0 BUN 19 H Creatinine 1.17 Est Cr Clr Drug Dosing 31.7 Est GFR ( Amer) 49.6 Est GFR (Non-Af Amer) 42.8 BUN/Creatinine Ratio 16.2 Glucose 123 H Calcium 8.5 Total Bilirubin 0.2 AST 17 ALT 20 Alkaline Phosphatase 134 H Troponin I < 0.015 Total Protein 7.9 Albumin 3.1 L Globulin 4.8 H Albumin/Globulin Ratio 0.6 L Lipase 181 10/28/18 10/28/18 10/28/18 06:50 06:50 06:50 WBC 4.34 L RBC 3.26 L Hgb 10.6 L Hct 32.8 L MCV 100.6 H MCH 32.5 MCHC 32.3 RDW Std Deviation 55.9 H RDW Coeff of [place] 15.3 H Plt Count 206 MPV 9.9 Immature Gran % (Auto) Neut % (Auto) Lymph % (Auto) Gray % (Auto) Eos % (Auto) Baso % (Auto) Immature Gran # (Auto) Neut # (Auto) Lymph # (Auto) Gray # (Auto) Eos # (Auto) Baso # (Auto) PT INR APTT PTT Ratio Sodium 142 Potassium 3.8 Chloride 111 H Carbon Dioxide 27 Anion Gap 4.0 BUN 16 Creatinine 0.97 Est Cr Clr Drug Dosing 37.9 Est GFR ( Amer) 62.2 Est GFR (Non-Af Amer) 53.6 BUN/Creatinine Ratio 16.9 Glucose 93 Calcium 8.3 L Total Bilirubin AST ALT Alkaline Phosphatase Troponin I < 0.015 Total Protein Albumin Globulin Albumin/Globulin Ratio Lipase 10/28/18 15:20 WBC RBC Hgb Hct MCV MCH MCHC RDW Std Deviation RDW Coeff of [place] Plt Count MPV Immature Gran % (Auto) Neut % (Auto) Lymph % (Auto) Gray % (Auto) Eos % (Auto) Baso % (Auto) Immature Gran # (Auto) Neut # (Auto) Lymph # (Auto) Gray # (Auto) Eos # (Auto) Baso # (Auto) PT INR APTT PTT Ratio Sodium Potassium Chloride Carbon Dioxide Anion Gap BUN Creatinine Est Cr Clr Drug Dosing Est GFR ( Amer) Est GFR (Non-Af Amer) BUN/Creatinine Ratio Glucose Calcium Total Bilirubin AST ALT Alkaline Phosphatase Troponin I < 0.015 Total Protein Albumin Globulin Albumin/Globulin Ratio Lipase PG Care Time/CCT Total # of Minutes Spent Total Time Spent with Patient: Total time spent is greater than 50% in coordination of care (as documented) at patient's floor/unit and/or counseling patient: (1) Chest pain, unspecified Chest pain type: unspecified Qualified Code(s): R07.9 - Chest pain, unspecified (2) CAD (coronary artery disease) Coronary Disease-Associated Artery/Lesion type: galena artery [place] vs. transplanted heart: galena heart Associated angina: without angina Qualified Code(s): I25.10 - Atherosclerotic heart disease of gal[place] coronary artery without angina pectoris (3) Hypertension Hypertension type: essential hypertension Qualified Code(s): I10 - Essential (primary) hypertension (4) Hyperlipidemia Hyperlipidemia type: mixed hyperlipidemia Qualified Code(s): E78.2 - Mixed hyperlipidemia (5) Leukopenia Leukopenia type: unspecified Qualified Code(s): D72.819 - Decreased white blood cell count, unspecified
[2018-10-28] MEDS ORDERED: ATORVASTATIN 40 MG TAB PO SCH (21:00)
[2018-10-29] MEDS: SODIUM CHLORIDE 0.9% 1000ML 1,000 ML IV SCH (02:02)
[2018-10-29 08:11] LABS: BUN Creatinine Ratio 18.3 (10-20); Calcium 8.6 mg/dl (8.5-10.1); Creatinine Clr Calc Pharmacy 37.1 ml/min; Est GFR (African American) 60.6; Est GFR (Non-African American) 52.3; Potassium 3.9 mmol/L (3.5-5.1)
[2018-10-29] MEDS: ISOSORBIDE MONO EXTENDED REL 60 MG TABCR PO SCH (08:56)
[2018-10-29] MEDS: GABAPENTIN 300 MG CAP PO SCH (08:57)
[2018-10-29] MEDS: METOPROLOL SUCC 50MG EXT REL TAB PO SCH (08:57)
[2018-10-29] MEDS: ASPIRIN 81 MG ECTAB PO SCH (09:00)
[2018-10-29] MEDS: NIFEdipine EXTENDED REL 30 MG TABCR PO SCH (09:00)
[2018-10-29] MEDS: HEPARIN SOD 5,000 UNIT/0.5 ML VIAL SQ SCH (09:01)
[2018-10-29] MEDS: LETROZOLE 2.5 MG TAB PO SCH (09:01)
[2018-10-29] MEDS: TIMOLOL MALEATE 0.25% OP SOLN 5 ML BTL OPB SCH (09:01)
[2018-10-29 09:48] LABS: Folate (Folic Acid) 9.57 ng/ml (>5.38)
[2018-10-29] MEDS ORDERED: CYANOCOBALAMIN 500 MCG TABLET (VITAMIN B-12) PO SCH (10:15)
--- NOTE | 2018-10-31 04:32 | Discharge Summary ---
Date of Service date of admission - October 28, 2018 date of discharge - October 29, 2018 Admission HPI Per Admitting Provider The patient is an 83-year-old woman who speaks only [place]. Today's interview with facilitated with a credit review analyst. It seems that she has been having symptoms chest discomfort for many years. This discomfort is primarily characterized by sense of pain in the left and central precordium. It tends to radiate to the left shoulder as well. The symptoms are fairly random in onset but can occasionally be associated with activity. Patient states that in general these episodes have been relatively brief over the years and she commonly will take sublingual nitroglycerin with relief. More recently, she states that the symptoms have become more prolonged in nature and respond poorly to nitroglycerin. Yesterday she had an episode that did not resolve with nitroglycerin. Nitroglycerin appear to have some mild effect but in general she had symptoms of this chest discomfort for many hours. There does not appear to be a positional component. She states that she does have some mild dyspnea at times associated with the discomfort. Outside of the more prolonged nature of the episodes and the less responsiveness to nitroglycerin, they do not appear to have changed significantly over several years. In March 2018 she underwent heart catheterization showing nonobstructive coronary artery disease. Principal Diagnosis chest pain, etiology uncertain, ACS ruled out Discharge Exam Constitutional well developed and well nourished; no acute distress ENMT external ear and nose normal, oropharynx normal Respiratory normal respiratory effort, lungs clear to auscultation Cardiovascular Rate/Rhythm: regular rate and regular rhythm Heart Sounds: normal S1 and normal S2 Vessels: posterior tibial pulses present and dorsalis pedis pulses present; no JVD Extremities: no edema Chest (Breasts) Additional Comments: no reproducible chest wall tenderness Gastrointestinal (Abdomen) normal bowel sounds, soft, nontender, no hepatosplenomegaly Psychiatric A+Ox3, euthymic affect Discharge Data Allergies Allergy/AdvReac Type Severity Reaction Status Date / Time ibuprofen Allergy Unknown Nausea Verified 10/27/18 23:01 Consultations Cardiology - Jaciel Almaraz MD Ordered Studies CTA chest - no PE, no pneumonia. Hospital Course (1) Chest pain, unspecified: All troponins were negative while hospitalized. Telemetry was normal. She has had multiple caths in the last several years all of which showed nonobstructive CAD only. Latest was March 2018. She has had frequent outpatient visits for this pain without full explanation of the symptoms and without full resolution. During this stay, after the pain had resolved, the pain returned once again. The pain is not reproducible on exam making musculoskeletal etiology unlikely. Since she had traveled to [place] recently I obtained CTA chest -- this was negative for PE. The report mentions ?pulmonary edema but she had no clinical evidence of such while here. Seen by cardiology - Dr Almaraz felt her pain was noncardiac in origin. GI etiology for the pain? Will place on empiric PPI for 1 month to see if there is any improvement in her symptoms. (2) CAD (coronary artery disease): Continue aspirin Continue statin Continue beta jonah Nonobstructive CAD was seen on her last 2 cardiac caths including one performed in March 2018. (3) Hypertension: Continue Bisoprolol and nifedipine Control adequate while hospitalized (4) Hyperlipidemia: Continue atorvastatin (5) Lumbar radiculopathy: Continue prn tramadol NO issues during the visit (6) Chronic kidney disease, stage 3a: Creatinine stable/at baseline (7) Leukopenia: Chronic. B12/folate levels were checked. B12 level was low-normal; folate was normal. Advised B12 supplementation 1000mcg daily for at least 6 months. Total Time Total Time Spent Total Time Spent (In Minutes): 30 Total Time Includes: Examination of the Patient, Discharge Planning, Medication Reconciliation and Communication With Other Providers Discharge Plan Discharge Items Patient Disposition: Home - Self-Care Reason For Visit: CHEST PAIN Discharge Diagnosis: chest pain, heart attack ruled out. Blood clots ("pulmonary emboli") ruled out with normal CAT scan of the lungs. Goals: 1. control/resolve the chest pain 2. determine cause of pain Activity: Resume your previous activity Activity Comment: as tolerated Non-emergency contact: Primary Care Provider Call non-emergency contact if: you have any medication questions, your symptoms worsen, your pain is not controlled, your pain is worsening, your pain is unusual for you and your pain is concerning for you Follow-up/Referrals: Kingston Garcia, [Primary Care Provider] - (see Dr Garcia within 1 week) Diet: Heart Healthy Addtl Attending Provider Instructions: Your chest pain ultimately resolved during your stay. You were seen by the flight service specialist and it was felt that your pain was NOT from your heart. Your CAT scan did not show blood clots. No evidence of heart attack was found while hospitalized. The exact cause of your pain was uncertain. I would recommend a 1-month trial of pantoprazole medication to see if your esophagus or stomach is the cause of your pain. If this medication helps then your outpatient doctors may continue it longer. We also found low levels of vitamin B12. Take vitamin B12 1000mcg daily for 1 year to replenish your B12 level. Follow-up - see Dr Garcia within 1 week Pending Studies at Discharge: No Stand-Alone Forms: My [facility] Medications and DC Order Prescriptions: New pantoprazole 40 mg tablet,delayed release (DR/EC) 40 mg PO QAM 28 Days Qty: 28 RF: 0 cyanocobalamin (vitamin B-12) 1,000 mcg capsule 1,000 mcg PO DAILY Qty: 30 RF: 11 Continued aspirin 81 mg tablet,delayed release (DR/EC) 81 mg PO DAILY Qty: 30 RF: 5 gabapentin 300 mg capsule 300 mg PO TID Qty: 360 RF: 0 bisoprolol fumarate 10 mg tablet 10 mg PO DAILY RF: 0 letrozole 2.5 mg tablet 2.5 mg PO DAILY RF: 0 atorvastatin 40 mg Tablet 40 mg PO HS Qty: 30 RF: 3 isosorbide mononitrate 120 mg tablet extended release 24 hr 240 mg PO DAILY RF: 0 nitroglycerin [Nitrostat] 0.4 mg tablet, sublingual 0.4 mg sublingual UD PRN (Reason: Chest Pain) RF: 0 timolol maleate [Timoptic] 0.5 % drops 1 drp OPB BID RF: 0 tramadol 50 mg Tablet 50 mg PO TID PRN (Reason: Pain) RF: 0 triamcinolone acetonide 0.1 % Cream 1 applic TOPICAL DAILY RF: 0 nifedipine 30 mg tablet extended release 30 mg PO BID RF: 0 Discharge Orders: Discharge Order (Routine); Ordered 10/29/18 Ordered By: Jefferson Dubois Admission Data Admit Date/Time: 10/28/18 00:23 Attending Provider: Jefferson Dubois Admit Provider: Paco Soriano Primary Care Provider: Kingston Garcia Other Providers: Paco Soriano ; You Goodrich Other Interventions: Discharge Summary Assessment (RN) Last Done: 10/29/18 11:46 DC Date/Time DO NOT enter until pt leaves facility: 10/29/18 12:10
== END 2018-10-29 12:10 | disposition home or self-care (01) ==
LOC: 2S 22:11 → ED 22:11 → SUATTDRO 10-28 00:23 → 2S 10-28 00:58

== ENCOUNTER 2020-03-06 14:57 | Inpatient (IN) ==
--- NOTE | 2020-03-06 15:29 | Emergency Department Note ---
Impression & Plan Hypoxia, Pleural effusion ED Provider Note NAME: ALEX NAQVI AGE: 84 SEX: F : 1935 ARRIVES VIA: Walk-In INFORMANT: Patient ED PROVIDER(S): Kenji Thomason DO CHIEF COMPLAINT: Shortness of breath HPI: Patient is an 84-year-old female with a past medical history of metastatic breast cancer who presents the ER for shortness of breath. She has a history of pleural effusions with 2 previous taps. She was found to be anemic and seen in the cancer clinic. She was given 2 units of PRBCs and sent to the ER as she was still hypoxic. She denies any headache or change in vision. Had fevers about 2 weeks ago but none since then. She has been feeling weak. No belly pain nausea vomiting or diarrhea. She does have swelling in her legs. No other exacerbating or remitting factors. ROS: See above HPI for pertinent positives & negatives. A total of 10 systems reviewed and were otherwise negative. PAST MEDICAL HISTORY:See Below PAST SURGICAL HISTORY:See Below FAMILY HISTORY:See Below SOCIAL HISTORY:See Below HOME MEDICATIONS:See Below ALLERGIES:See Below VITALS:See Below PHYSICAL EXAMINATION: GENERAL: Sitting up in bed, alert, disheveled, not EYE EXAM: normal conjunctiva. OROPHARYNX: Dry mucous membranes NECK: supple, no nuchal rigidity, no adenopathy, non-tender LUNGS: Diminished bilaterally. Normal chest wall mechanics HEART: no murmurs, S1 normal and S2 normal ABDOMEN: abdomen soft, non-tender, normo-active bowel sounds, no masses, no rebound or guarding. BACK: Back is symmetrical on inspection and there is no deformity, no midline tenderness, no CVA tenderness. SKIN: no rashes and no bruising UPPER EXTREMITIES: upper extremities are grossly normal. LOWER EXTREMITIES: No pitting edema. NEURO EXAM: Normal sensorium, cranial nerves II-XII grossly intact, normal speech, no gross weakness of arms, no gross weakness of legs. MEDICAL DECISION MAKING: Patient is an 84-year-old female who presents the ER with son at bedside who is translating. She denies truly all complaints with the exception that she was found to be hypoxic at the cancer clinic. She was sent over for further evaluation. IV was established blood work was obtained. Labs show no significant leukocytosis and mild anemia at 11.2 which is significantly improved from where she has been in the past after her transfusions today. INR unremarkable. BMP with an elevated chloride. LFTs bilirubin was unremarkable. Lipase was normal. Troponin was detectable but not positive. Covid was negative. Chest x-ray with bilateral pleural effusions which she has had before in the past but they appear to be worse. Discussed with pulmonology and they recommend diuresing her and they will evaluate in the morning for tap. Discus sed with hospitalist for further evaluation. She was given a dose of Lasix. Updated bedside. CT of the head was performed and was unremarkable due to some intermittent spots within her vision. Triage Nursing notes reviewed. Limited review of prior medical records performed Vital Signs: reviewed and remarkable for hypoxic Differential diagnosis: Differential diagnoses includes but is not limited to pneumonia, bronchitis, COPD/Asthma exacerbation, pneumothorax, pulmonary embolism, congestive heart failure, acute coronary syndrome ER treatment provided: See below Diagnostics interpreted by me: ECG: Sinus rhythm rate of 74 Left axis No PVCs QTC 444 Cardiac Monitoring: An order was placed for continuous cardiac monitoring. The monitor shows a rate of 78 with sinus rhythm. Laboratory studies: As stated above and show below. Imaging studies: See below Consultation(s): Discussed with Dr. henriquez from pulmonology who recommends diuresing and he will evaluate tomorrow Discussed with the hospitalist for further evaluation Procedures: none Critical Care: I have personally spent 32 minutes of critical care time in the direct management of this patient. This includes bedside care, interpretation of diagn ostic studies, and testing, discussion with consultants, patient, and family members, and other required patient management activities. This 32 minutes is in excess of all separately billable procedures. Past Med/Surg History Medical History CAD (coronary artery disease) Mild to moderate non obstructive CAD per 2019 cath 40-50% proximal OM2 stenosis 30-40% ostial RCA Chronic kidney disease, stage 3a Diabetes mellitus, type 2 NO MEDICATIONS Hyperlipidemia Hypertension Malignant pleural effusion (~04/2019) S/p Pleurx catheter placement (but removed in 09/2019) Metastatic breast cancer (~08/2019) Initially dx'ed in 2012- s/p mastectomy with chemo. 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 Rajan 05/02/2019 at [facility] History of tonsillectomy Hx of left mastectomy (~02/15/12) Port-A-Cath in place (01/15/20) Insertion of Mediport Dr. Chan 01/15/2020 Family History Other Medical history non-contributory Social History Smoking Status: Never smoker Second Hand Exposure: No; Do You Dip or Chew Tobacco: No; Hx Alcohol Use: No Hx Substance Use: No Preferred Language: [place] Communication Ability: language Communication Tools: IPad and Language Line Concert Or Lecture Hall Manager Visual Impairment: No Limitations Hearing Ability: Hard of Hearing Concert Or Lecture Hall Manager Required: Yes, Video and Voice Beliefs That Will Affect Care: None marital status: / Current Living Situation: Alone current occupational status: retired Other Information That Helps Us Care for You: No Feels Safe at Home: Yes Safety Concerns: Feels Safe At This Time Dental Care, Regularly: Yes Physical Activity Frequency: Does not Exercise Seatbelt Use: always Sunscreen Use: Yes Assistive Devices: None Allergies Allergies Allergy/AdvReac Type Severity Reaction Status Date / Time diclofenac AdvReac Vomiting Verified 03/06/20 16:00 Home Meds Home Medications Medication Instructions Recorded Confirmed timolol maleate [Timoptic] 1 drp OPB BID 10/27/18 03/06/20 aspirin 81 mg PO QAM 09/03/19 03/06/20 isosorbide mononitrate 120 mg 60 mg PO QAM tab 11/15/19 03/06/20 tablet,extended release 24 hr nifedipine 60 mg tablet,extended 60 mg PO QAM tab 11/15/19 03/06/20 release 24 hr bisoprolol fumarate 10 mg PO QAM 01/08/20 03/06/20 gabapentin 300 mg PO DAILY PRN 03/06/20 03/06/20 Previous Rx's Medication Instructions Recorded atorvastatin 40 mg tablet 40 mg PO HS #90 tab 10/25/19 nitroglycerin 400 mcg/spray 0.4 mg SUBLINGUAL Q5M PRN #4.9 g 10/25/19 translingual tramadol [Ultram] 50 mg PO Q4H PRN #8 tab 01/15/20 Results & Data (ED) Vital Signs Vital Signs - 24 hr 03/06/20 15:09 03/06/20 15:37 03/06/20 17:00 Temperature 36.7 C Temperature Source Temporal Artery Scan Pulse Rate 73 Pulse Rate [Apical] 80 Pulse Rhythm [Apical] Regular Pulse Strength [Apical] Normal Respiratory Rate 18 22 Respiratory Effort / Characteristics Non-Labored Spontaneous Non-Labored Spontaneous Respiratory Depth Normal Normal Respiratory Pattern Regular Regular Blood Pressure 152/70 H Blood Pressure [Right Arm] 161/100 H Blood Pressure Mean 97 Blood Pressure Mean [Right Arm] 120 Blood Pressure Position [Right Arm] Sitting Pulse Oximetry 81 L 94 91 Oxygen Delivery Method Room Air Nasal Cannula Nasal Cannula Oxygen Flow Rate 4 4 Sepsis Recent Fever Within 48 Hours No Sepsis New/Unexplained Change in Mental Status N/A Sepsis Action Taken by Nursing No Action Required 03/06/20 18:00 03/06/20 19:28 Temperature Temperature Source Pulse Rate Pulse Rate [Apical] 82 80 Pulse Rhythm [Apical] Regular Pulse Strength [Apical] Normal Respiratory Rate 22 20 Respiratory Effort / Characteristics Non-Labored Spontaneous Respiratory Depth Normal Respiratory Pattern Regular Blood Pressure Blood Pressure [Right Arm] 155/94 H 156/88 H Blood Pressure Mean Blood Pressure Mean [Right Arm] 114 110 Blood Pressure Position [Right Arm] Sitting Pulse Oximetry 95 96 Oxygen Delivery Method Nasal Cannula Nasal Cannula Oxygen Flow Rate 4 Sepsis Recent Fever Within 48 Hours Sepsis New/Unexplained Change in Mental Status Sepsis Action Taken by Nursing Laboratory Data Result diagrams: 03/06/20 15:51 03/06/20 15:51 Lab Results 03/06/20 03/06/20 03/06/20 Range/Units 15:51 15:51 15:51 WBC 5.25 (4.8-10.8) K/uL RBC 3.48 L (4.2-5.4) M/uL Hgb 11.2 L (12.0-16.0) g/dL Hct 33.9 L (37-47) % MCV 97.4 (80-100) fL MCH 32.2 (25-34) pg MCHC 33.0 (32-36) g/dL RDW Std Deviation 61.1 H (36.4-46.3) fL RDW Coeff of Key[place] 17.3 H (11.5-14.5) % Plt Count 251 (130-400) K/uL MPV 10.9 H (7.4-10.4) fL Immature Gran % (Auto) 0.0 % Neut % (Auto) 75.8 % Lymph % (Auto) 23.8 % Redwood % (Auto) 0.2 % Eos % (Auto) 0.0 % Baso % (Auto) 0.2 % Neut # (Auto) 3.98 (1.4-6.5) K/uL Lymph # (Auto) 1.25 (1.2-3.4) K/uL Redwood # (Auto) 0.01 L (0.11-0.59) K/uL Eos # (Auto) 0.00 (0-0.5) K/uL Baso # (Auto) 0.01 (0-0.2) K/uL Immature Gran # (Auto) 0.00 (0.00-0.02) K/uL PT 11.1 (9.0-12.0) Seconds INR 1.1 (0.9-1.1) APTT 25.2 (21.0-31.0) Seconds PTT Ratio 0.9 Sodium 138 (136-145) mmol/L Potassium 3.9 (3.5-5.1) mmol/L Chloride 109 H (98-107) mmol/L Carbon Dioxide 23 (21-32) mmol/L Anion Gap 6.0 (3-11) BUN 23 H (7-18) mg/dl Creatinine 1.15 (0.6-1.2) mg/dl Est Cr Clr Drug Dosing Not Reportable Est GFR ( Amer) 50.2 Est GFR (Non-Af Amer) 43.4 BUN/Creatinine Ratio 20.0 (10-20) Glucose 90 (70-99) mg/dl Calcium 8.5 (8.5-10.1) mg/dl Total Bilirubin 0.8 (0.2-1) mg/dl AST 20 (15-37) U/L ALT 16 (12-78) U/L Alkaline Phosphatase 105 (45-117) U/L Troponin I 0.020 (0-0.045) ng/ml Total Protein 7.5 (6.4-8.2) gm/dl Albumin 2.5 L (3.4-5.0) gm/dl Globulin 5.0 H (2.5-4.0) gm/dl Albumin/Globulin Ratio 0.5 L (0.9-2) Lipase 162 (73-393) U/L COVID-19 Eval Order SARS-CoV-2 (PCR) (Negative) Influenza Type A (PCR) (Neg) Influenza Type B (PCR) (Neg) RSV (RT-PCR) (Neg) 03/06/20 03/06/20 Range/Units 16:50 16:50 WBC (4.8-10.8) K/uL RBC (4.2-5.4) M/uL Hgb (12.0-16.0) g/dL Hct (37-47) % MCV (80-100) fL MCH (25-34) pg MCHC (32-36) g/dL RDW Std Deviation (36.4-46.3) fL RDW Coeff of Keya (11.5-14.5) % Plt Count (130-400) K/uL MPV (7.4-10.4) fL Immature Gran % (Auto) % Neut % (Auto) % Lymph % (Auto) % Redwood % (Auto) % Eos % (Auto) % Baso % (Auto) % Neut # (Auto) (1.4-6.5) K/uL Lymph # (Auto) (1.2-3.4) K/uL Redwood # (Auto) (0.11-0.59) K/uL Eos # (Auto) (0-0.5) K/uL Baso # (Auto) (0-0.2) K/uL Immature Gran # (Auto) (0.00-0.02) K/uL PT (9.0-12.0) Seconds INR (0.9-1.1) APTT (21.0-31.0) Seconds PTT Ratio Sodium (136-145) mmol/L Potassium (3.5-5.1) mmol/L Chloride (98-107) mmol/L Carbon Dioxide (21-32) mmol/L Anion Gap (3-11) BUN (7-18) mg/dl Creatinine (0.6-1.2) mg/dl Est Cr Clr Drug Dosing Est GFR ( Amer) Est GFR (Non-Af Amer) BUN/Creatinine Ratio (10-20) Glucose (70-99) mg/dl Calcium (8.5-10.1) mg/dl Total Bilirubin (0.2-1) mg/dl AST (15-37) U/L ALT (12-78) U/L Alkaline Phosphatase (45-117) U/L Troponin I (0-0.045) ng/ml Total Protein (6.4-8.2) gm/dl Albumin (3.4-5.0) gm/dl Globulin (2.5-4.0) gm/dl Albumin/Globulin Ratio (0.9-2) Lipase (73-393) U/L COVID-19 Eval Order CovFluRsv at [facility] SARS-CoV-2 (PCR) NEGATIVE (Negative) Influenza Type A (PCR) Negative (Neg) Influenza Type B (PCR) Negative (Neg) RSV (RT-PCR) Negative (Neg) Administered Medications Discontinued Medications Furosemide (Furosemide 40 Mg/4 Ml Vial) 40 mg IV NOW STA Stop: 03/06/20 17:13 Last Admin: 03/06/20 17:57 Dose: 40 mg Documented by: [id number] Discharge Plan Visit Data Chief Complaint: Illness Stated Complaint: Low oxygen level ED Provider: Kenji Thomason Discharge Problem: Hypoxia, Pleural effusion Forms Stand Alone Forms: My [facility] Prescriptions Prescriptions: No Action nifedipine 60 mg tablet extended release 24hr 60 mg PO QAM RF: 0 atorvastatin [Lipitor] 40 mg tablet 40 mg PO HS Qty: 90 RF: 3 nitroglycerin 400 mcg/spray spray,non-aerosol 0.4 mg sublingual Q5M PRN (Reason: chest pain) Qty: 4.9 RF: 3 timolol maleate [Timoptic] 0.5 % drops 1 drp OPB BID RF: 0 gabapentin 300 mg Capsule 300 mg PO DAILY PRN (Reason: Pain) RF: 0 aspirin 81 mg tablet,delayed release (DR/EC) 81 mg PO QAM RF: 0 isosorbide mononitrate 120 mg tablet extended release 24 hr 60 mg PO QAM RF: 0 bisoprolol fumarate 10 mg tablet 10 mg PO QAM RF: 0 tramadol [Ultram] 50 mg tablet 50 mg PO Q4H PRN (Reason: pain) Qty: 8 RF: 0
--- NOTE | 2020-03-06 15:48 | XRay Report ---
XR chest 1V portable HISTORY: 84 years-old Female Chest Pain acute atypical chest pain COMPARISON: Chest radiograph 01/15/2020, chest CT 11/01/2019 TECHNIQUE: Upright portable AP view of the chest FINDINGS: Unchanged positioning of the right subclavian Wiheii-y-Gtup catheter. Calcified plaque of the thoraci c aorta. Calcified granuloma of the right upper lung redemonstrated. Pulmonary vascular congestion wi th interstitial coarsening. Small right and moderate left pleural effusions with left greater than ri ght bibasilar consolidation. Degenerative changes of the shoulders and spine. Remote left-sided rib f ractures. IMPRESSION: 1. Cardiomegaly with pulmonary edema. 2. Small right and moderate left pleural effusions with bibasilar consolidation. ACT 112: Negative or not required by law. The above report was generated using voice recognition software. It may contain grammatical, syntax o r spelling errors. Electronically signed by: Myron Walters M.D. 03/06/2020 3:47 PM
[2020-03-06 16:21] LABS: INR 1.1 (0.9-1.1); Partial Thromboplastin Ratio 0.9; Partial Thromboplastin Time 25.2 Seconds (21.0-31.0); Prothrombin Time 11.1 Seconds (9.0-12.0)
[2020-03-06 16:24] LABS: Blood Urea Nitrogen 23 mg/dl (7-18); Calcium 8.5 mg/dl (8.5-10.1); Carbon Dioxide 23 mmol/L (21-32); Chloride 109 mmol/L (98-107); Glucose 90 mg/dl (70-99); Potassium 3.9 mmol/L (3.5-5.1); Sodium 138 mmol/L (136-145)
[2020-03-06 16:33] LABS: Basophils # (auto) 0.01 K/uL (0-0.2); Basophils % (auto) 0.2 %; Hematocrit (blood only) 33.9 % (37-47); Hemoglobin 11.2 g/dL (12.0-16.0); Lymphocytes # (auto) 1.25 K/uL (1.2-3.4); Lymphocytes % (auto) 23.8 %; Mean Corpuscular Hemoglobin 32.2 pg (25-34); Mean Corpuscular Volume 97.4 fL (80-100); Mean Platelet Volume 10.9 fL (7.4-10.4); Monocytes # (auto) 0.01 K/uL (0.11-0.59); Monocytes % (auto) 0.2 %; Neutrophils # (auto) 3.98 K/uL (1.4-6.5); Neutrophils % (auto) 75.8 %; Platelet Count 251 K/uL (130-400); RDW Coefficient of Variation 17.3 % (11.5-14.5); RDW Standard Deviation 61.1 fL (36.4-46.3); Red Blood Count 3.48 M/uL (4.2-5.4); White Blood Count 5.25 K/uL (4.8-10.8)
[2020-03-06 16:42] LABS: Alanine Aminotransferase 16 U/L (12-78); Albumin Globulin Ratio 0.5 (0.9-2); Albumin Level 2.5 gm/dl (3.4-5.0); Alkaline Phosphatase 105 U/L (45-117); Aspartate Aminotransferase 20 U/L (15-37); Bilirubin,Total 0.8 mg/dl (0.2-1); Est GFR (African American) 50.2; Est GFR (Non-African American) 43.4; Lipase 162 U/L (73-393); Total Protein 7.5 gm/dl (6.4-8.2)
[2020-03-06] MEDS ORDERED: FUROSEMIDE 40 MG/4 ML VIAL IV STA (17:12)
[2020-03-06 17:43] LABS: Influenza A virus by PCR Negative (Neg); Influenza B virus by PCR Negative (Neg); RSV by PCR Negative (Neg); SARS CoV2 RNA(COVID-19) InHosp NEGATIVE (Negative)
--- NOTE | 2020-03-06 18:24 | History & Physical Report ---
Date of Service March 06, 2020 Assessment & Plan (1) Pleural effusion, left: Patient will be admitted to the hospital and we will proceed as follows: Pulmonary medicine will be consulted. The treating emergency room physician has already discussed the case with them and they have requested the patient receive intravenous Lasix which has been given. As patient has a recurrent malignant pleural effusion she would likely benefit from another drainage procedure. We will defer to pulmonary whether a thoracentesis or Pleurx catheter is performed. Due to the visual disturbance the patient has noted the treating emergency room physician has ordered a CT scan of her head we will certainly follow for the results of this. We will use SCDs for DVT prevention. We will hold on chemical means for the present time as she will likely need a pleural drainage procedure tomorrow. Once this is completed DVT prevention measures in the form of Lovenox can be implemented The patient's son makes medical decisions for her. At bedside I discussed with him CODE STATUS and he notes in the event of cardiopulmonary arrest she is to be a level 1 full code. History of Present Illness Chief Complaint: Per patient's son "my oxygen level was low" Primary Care Provider: Kingston Garcia, DO This patient speaks broken Monegasque and due to language barrier the history was supplemented by her son who was present at bedside. This is an 84-year-old female with a history of breast cancer. Patient is currently receiving chemotherapy treatments. Her most recent treatment was 2 days ago. It is noted that her next chemotherapy session is due in approximately 1 week. Patient was receiving a blood transfusion today and was noted to be hypoxic in the treatment unit and was therefore referred to the emergency department for further evaluation. Patient has noted some decreased energy and fatigue, hypoxia, and shortness of breath with activity. It is noted that her appetite has been poor but there has been no nausea, vomiting, or reported abdominal pain. She did suffer a fall several days ago where she landed on her left side. She did not sustain any noted injuries but has some still residual soreness of the left side and her ribs. No weight loss has been reported. Since arrival to the emergency department the patient does complain of "floating spots" in both eyes. No visual loss has been reported though. In the emergency department the patient had a Covid test that was noted to be negative. CBC revealed a white blood cell count and platelet count both within the normal range. Her hemoglobin and hematocrit were 11.2 and 33.9. It is noted that these values were performed after her blood transfusion today and hemoglobin hematocrit 2 days ago was 7.7 and 24.5. Chemistry profile revealed a sodium and potassium within the normal range her creatinine was normal at 1.1. A chest x-ray showed a small amount of pulmonary edema along with a moderate left pleural effusion and a small right pleural effusion. An EKG showed normal sinus rhythm without acute ischemic changes. It is noted that the patient did undergo a left ultrasound-guided thoracentesis by Dr. Vieira on 05/02/2019. Cytology from this fluid revealed findings consistent with metastatic carcinoma. Since this procedure the patient does not report having any additional pleural drainage procedures. At the time of my exam she was resting comfortably in bed and did not appear to be in any distress. Allergies Allergy/AdvReac Type Severity Reaction Status Date / Time diclofenac AdvReac Vomiting Verified 03/06/20 16:00 Home Medications Medication Instructions Recorded Confirmed Type timolol maleate [Timoptic] 1 drp OPB BID 10/27/18 03/06/20 History aspirin 81 mg PO QAM 09/03/19 03/06/20 History atorvastatin 40 mg tablet 40 mg PO HS #90 tab 10/25/19 03/06/20 Rx nitroglycerin 400 mcg/spray 0.4 mg SUBLINGUAL Q5M PRN #4.9 g 10/25/19 03/06/20 Rx translingual isosorbide mononitrate 120 mg 60 mg PO QAM tab 11/15/19 03/06/20 History tablet,extended release 24 hr nifedipine 60 mg tablet,extended 60 mg PO QAM tab 11/15/19 03/06/20 History release 24 hr bisoprolol fumarate 10 mg PO QAM 01/08/20 03/06/20 History tramadol [Ultram] 50 mg PO Q4H PRN #8 tab 01/15/20 03/06/20 Rx gabapentin 300 mg PO DAILY PRN 03/06/20 03/06/20 History Past Med/Surg History Medical History (Updated 03/09/20 @ 00:05 by Background Daemon) CAD (coronary artery disease) Mild to moderate non obstructive CAD per 2019 cath 40-50% proximal OM2 stenosis 30-40% ostial RCA Chronic kidney disease, stage 3a Diabetes mellitus, type 2 NO MEDICATIONS Hyperlipidemia Hypertension Malignant pleural effusion (~04/2019) S/p Pleurx catheter placement (but removed in 09/2019) Metastatic breast cancer (~08/2019) Initially dx'ed in 2012- s/p mastectomy with chemo. 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 Rajan 05/02/2019 at [facility] History of tonsillectomy Hx of left mastectomy (~02/15/12) Port-A-Cath in place (01/15/20) Insertion of Mediport Dr. Chan 01/15/2020 S/P thoracentesis 03/07/20 Dr. Ernie Vasquez- (L) 500 ml drained Family History Other Medical history non-contributory Social History Smoking Status: Never smoker Second Hand Exposure: No; Hx Alcohol Use: No Hx Substance Use: No Preferred Language: Bel[place]an Communication Ability: Effective Communication Tools: IPad Visual Impairment: No Limitations Hearing Ability: Hard of Hearing Central Processing Technician Required: Yes, Video and Voice Beliefs That Will Affect Care: None marital status: / Current Living Situation: Alone current occupational status: retired Feels Safe at Home: Yes Dental Care, Regularly: Yes Physical Activity Frequency: Does not Exercise Seatbelt Use: always Sunscreen Use: Yes Assistive Devices: Oxygen - Continuous Review of Systems Constitutional: + fatigue and + anorexia; no fever Eyes: + problem reported (Floaters) Ear, Nose, Mouth, Throat: no tinnitus Respiratory: + dyspnea on exertion; no cough Cardiovascular: no chest pain Gastrointestinal: no abdominal pain, no nausea and no vomiting Genitourinary: no dysuria Musculoskeletal: no back pain Left rib pain Integumentary: no rash Neurologic: no localized weakness Physical Exam Constitutional: well developed and well nourished; no acute distress Eyes: PERRL and EOM intact bilaterally Vision was tested bilaterally and patient was able to identify large objects without difficulty ENMT: Ears: no hearing impairment Neck: trachea midline Respiratory: normal respiratory effort; no respiratory distress, no labored breathing and does not use accessory muscles No wheezing. Patient was noted to have decreased breath sounds bilaterally left greater than right. Cardiovascular: Rate/Rhythm: regular rate and regular rhythm Gastrointestinal (Abdomen): Percussion/Palpation: abdomen soft; abdomen nontender (Palpation did not cause pain) Musculoskeletal: No calf tenderness. Patient did have palpation over the left lateral inferior ribs. Skin: no rashes, warm and dry Neurologic: moves all extremities Psychiatric: Orientation: alert and oriented x 3 Results & Data Results & Data ([facility]) Vital Signs (Past 12 Hours) Vital Signs Temp Pulse Resp BP Pulse Ox 03/06/20 15:37 94 03/06/20 15:09 36.7 C 73 18 152/70 H 81 L Supervising Physician Co-Signing Physician Notes I personally saw and examined the patient. I verified all presley points and agree with TON Berrios with the following exceptions and/or additions: 84 year old female presents to the ER admission for shortness of breath and hypoxia. Suspect somewhat secondary to anemia therefore transfused 2 units packed RBCs today at her oncology visit. Still hypoxic and short of breath after this therefore sent to the ER. O/E Left > Right absent breath sounds at bases, crackles posteriorly, HS1+2, no murmurs A/P Acute hypoxic respiratory failure - multifactorial but likely pulmonary edema and left pleural effusion major contributing factors Moderate left pleural effusion - consult pulmonology for possible thoracocentesis. PG Care Time/CCT Total # of Minutes Spent Total Time Spent with Patient: Total time spent is greater than 50% in coordination of care (as documented) at patient's floor/unit and/or counseling patient: Coding Level of Care Code 12899 Initial Inpt Care Lvl 3 Diagnoses Pleural effusion, left J90
--- NOTE | 2020-03-06 18:46 | CT Scan Report ---
CT head/brain wo con CLINICAL HISTORY: 84 years-old Female with pots in vision. Acutely altered vision in a patient with history of breast cancer TECHNIQUE: Multiple axial CT images of the head were obtained without contrast. A dose lowering tech nique was utilized adhering to the principles of ALARA. CT DOSE: 537.48 mGy.cm COMPARISON: Brain MRI 06/29/2019 FINDINGS: No acute intracranial hemorrhage, midline shift, intra-axial mass, hydrocephalus, territorial ischemi a or abnormal extra-axial collection. Age-related involutional changes. Patchy white matter hypodensi ties suggest chronic microvascular ischemic disease. Cerebral vascular calcifications are noted. Comm ents of the pituitary gland redemonstrated. Tiny remote lacunar infarcts of the basal ganglia. No acute calvarial fracture. There are two ill-defined lytic lesions again noted within the calvarium is seen on images 18 and 28 of series 3 appear unchanged from comparison. Soft tissues and orbits ar e unremarkable. The paranasal sinuses, mastoid air cells, and middle ear cavities are clear. IMPRESSION: 1. No acute intracranial abnormality. 2. 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 ACT 112: Negative or not required by law. The above report was generated using voice recognition software. It may contain grammatical, syntax o r spelling errors. Electronically signed by: Myron Walters M.D. 03/06/2020 6:45 PM
[2020-03-06] MEDS ORDERED: traMADol HCL 50 MG TABLET PO PRN (21:12)
[2020-03-06] MEDS ORDERED: GABAPENTIN 300 MG CAP PO PRN (21:12)
[2020-03-06] MEDS ORDERED: NITROGLYCERIN SL 0.4 MG/TAB TAB SL PRN (21:27)
[2020-03-06] MEDS: ATORVASTATIN 40 MG TAB PO SCH (22:23)
--- NOTE | 2020-03-07 06:22 | Electrocardiogram Report ---
Test Reason : Blood Pressure : / mmHG Vent. Rate : 074 BPM Atrial Rate : 074 BPM P-R Int : 188 ms QRS Dur : 086 ms QT Int : 400 ms P-R-T Axes : 052 023 067 degrees QTc Int : 444 ms Normal sinus rhythm Nonspecific ST abnormality When compared with ECG of 03-SEP-2019 14:05, Premature ventricular complexes are no longer Present Confirmed by Steve Lennon ([id number]) on 03/07/2020 6:22:18 AM Referred By: SELF Confirmed By:Steve Lennon
[2020-03-07] MEDS ORDERED: FUROSEMIDE 20 MG in SYRINGE 0 ML IV ONE ×2 (08:15→17:30)
[2020-03-07 08:35] LABS: BUN Creatinine Ratio 18.3 (10-20); Calcium 8.1 mg/dl (8.5-10.1); Creatinine Clr Calc Pharmacy 34.5 ml/min; Est GFR (African American) 57.4; Est GFR (Non-African American) 49.5; Potassium 3.6 mmol/L (3.5-5.1)
--- NOTE | 2020-03-07 08:49 | XRay Report ---
XR chest 1V portable CLINICAL HISTORY: Atypical chest pain. Abnormal chest x-ray. Follow-up study. COMPARISON STUDY: 03/06/2020 FINDINGS: The heart remains enlarged. There is a persistent left pleural effusion with associated lef t lower lobe airspace opacities. There are old bilateral rib deformities. There is a trace right pleu ral effusion.[ IMPRESSION: No significant change from the prior study. Persistent trace right pleural effusion. Smal l moderate left pleural effusion with associated left lower lobe atelectasis/consolidation ACT 112: Negative or not required by law. Electronically signed by: Pancho Miranda M.D. 03/07/2020 8:48 AM
[2020-03-07] MEDS: NIFEdipine EXTENDED REL 30 MG TABCR PO SCH (09:57)
[2020-03-07] MEDS: TIMOLOL GFS 0.5% OPH SOLN 74 DROPS/5 ML BTL OPB SCH (09:58)
[2020-03-07] MEDS: ASPIRIN 81 MG ECTAB PO SCH ×2 (09:58→11:32)
[2020-03-07] MEDS: HEPARIN 100 UNIT/ML 5ML FLUSH FLUSH PRN ×2 (10:10→12:23)
[2020-03-07] MEDS: ISOSORBIDE MONO EXTENDED REL 60 MG TABCR PO SCH (11:32)
[2020-03-07] MEDS: BISOPROLOL FUMARATE 5 MG TAB PO SCH (11:32)
[2020-03-07] MEDS ORDERED: LORazepam 0.25 MG/0.5 ML VIAL IV ONE (11:45)
[2020-03-07] MEDS ORDERED: GADOBUTROL 65ML VIAL IV ONE (13:11)
--- NOTE | 2020-03-07 13:21 | Magnetic Resonance Report ---
MRI OF THE BRAIN WITHOUT AND WITH IV CONTRAST CLINICAL HISTORY: Headache and visual changes METASTATIC BREAST CARCINOMA COMPARISON STUDY: CT scan dated 03/06/2020, MRI the brain dated 06/29/2019 TECHNIQUE: MRI of the brain was performed from the vertex to the skull base utilizing various T1 and T2 weighted sequences. Following the IV administration of 5.5 mL of Gadavist contrast, additional enh anced images were obtained. FINDINGS: Sagittal T1, axial diffusion, proton density and T2 weighted axial, coronal FLAIR, and pre and post a xial T1-weighted images were acquired. These were supplemented with post gadolinium coronal T1 weight ed images. There is a 17 mm sellar mass. 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 No additional mass lesions are visualized. Axial diffusion-weighted images reveal no evidence of acute or subacute infarction. There is no evidence of ventricular dilatation. Proton density T2-weighted and FLAIR images reveal scattered foci of increased T2 signal within the w kecia matter, likely on a small vessel basis. There are no abnormal flow voids. The cerebellar lesion enhances. There are no additional pathologic intracranial masses. There are enh ancing calvarial lesion suspicious for metastatic disease. IMPRESSION: 1. No acute intracranial findings 2. 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 No evidence of acute or subacute infarction 4. No evidence of intraparenchymal metastasis 5. Metastatic disease within the calvarium ACT 112: Negative or not required by law. Electronically signed by: Pancho Miranda M.D. 03/07/2020 1:19 PM
--- NOTE | 2020-03-07 14:19 | Hospitalist Progress Note ---
Date of Service March 07, 2020 Assessment & Plan (1) Pleural effusion, left: Pulmonary consult - in the ED case was discussed with pulm and she was given a dose of Lasix (2) Hypoxia: Sats 81% on RA in the ED following transfusion - had lasix in the ED now on 2L NC 90% Patient saw her pcp on 02/24 for fevers, sore throat, stuffy nose, ear pain, headache, body aches. She was tested for COVID and again tested in the ED, both negative CXR in the ED showed cardiomegaly with pulmonary edema. Small right and moderate left pleural effusions with bibasilar consolidations Pulm consulted (3) Metastatic breast cancer: Sees Dr. Mac. She was to have next chemotherapy on Tuesday. Dr. Mac made aware that patient is in the hospital. Consider consult with palliative care to establish goals. (4) Chronic kidney disease, stage 3a: Stable Avoid nephrotoxins where possible (5) Chest wall pain: Patient reports this is ongoing for a year. Will order Lidoderm patch. Continue home tramadol (6) Hypertension: Continue bisoprolol, nifedipine, (7) CAD (coronary artery disease): Continue isosorbide, bisoprolol, atorvastatin, asa (8) Hyperlipidemia: Continue atorvastatin (9) Headache: with visual changes. CT head in the ED without acute changes MRI brain without acute changes either - continues to show metastatic disease within the calvarium. 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 Zamora is having a very back headache right lateral head as well as floating spots in her vision which started after her blood transfusion at the cancer center . Denies dizziness and lightheadedness. She reports chest pain and shortness of breath and cough but states this is ongoing for a year. She has been having fevers every night for the past few days. She is nauseas and constipated, no vomiting. Our discussion took place with the help of an ironing worker. I have updated her son over the phone. Review of Systems Review of Systems: All systems reviewed & are unremarkable except as noted in HPI & below Physical Exam Physical Exam: General: no distress Eyes: normal inspection, PERLL Respiratory: chest non tender, clear to auscultation, normal breath sounds, no respiratory distress, no accessory muscle use Cardiac: regular rate and rhythm, no rub or gallop, no murmur, no edema, no jvd GI/: active bowel sounds, no abd pain or tenderness, soft, non distended Extremities: normal range of motion, normal strength, non tender Neuro/Psych: alert and oriented x 3, normal mood and affect, CN II - XII intact Skin: normal color, dry Results & Data Results & Data ([facility]) Vital Signs (Past 12 Hours) Vital Signs Temp Pulse Resp BP Pulse Ox 03/07/20 07:39 36.9 C 83 16 138/76 90 PG Care Time/CCT Total # of Minutes Spent Total Time Spent with Patient: Total time spent is greater than 50% in coordination of care (as documented) at patient's floor/unit and/or counseling patient: Coding Level of Care Code 77603 Subseq Hosp Care Lvl 3 Diagnoses Pleural effusion, left J90 Hypoxia R09.02 Metastatic breast cancer C50.919 Chronic kidney disease, stage 3a N18.3 Chest wall pain R07.89 Hypertension I10 CAD (coronary artery disease) I25.10 Hyperlipidemia E78.5 Headache R51.9 DVT prophylaxis Z29.9
--- NOTE | 2020-03-07 15:50 | Pulmonary Consultation ---
Date of Consultation March 07, 2020 Assessment & Plan (1) Malignant pleural effusion: CXR: Increased vascular markings with b/l pleural effusion -- Acute hypoxic respiratory failure multifactorial likely secondary fluid overload with a component of pleural effusion c/w diuresis. Keep the patient negative balance. Will do bedside US if enough fluid will perform thoracentesis. Risks and benefits of the procedure explained to the patient. c/w O2 supplementation to keep oxygen > 90% Plan: Thoracentesis later today. Give 20mg of lasix today. Repeat later if need be. Incentive spirometry Please note the above document was generated using voice recognition software. It may contain grammatical, syntax or spelling errors.Any formal questions or concerns about the content, text or information contained within the body of this dictation should be directly addressed to the provider for clarification. (2) Acute respiratory failure with hypoxia: History of Present Illness Attending Physician: Herman Arana DO History of Present Illness 84 yo [place] female who speaks broken sami and converses in [place] came to the hospital with complains of worsening SOB. Patient got 2 units of PRBC recently. Patient needed oxygen in the ED Patient has history of metatatic breast ca with left sided pleural effusion. She has hx of Pleurx catheter which was removed on 09/20/19 because it was d raining a lot. At the time of examination patient stated that he breathing has been a issue for a while and she was feeling a little better after coming to the hospital. She was given lasix 40mg yesterday. Denies any CP, No F or chills, No cough. Patient denies any dysuria or diarrhea. She complained of spots in front of her eyes yesterday which have since resolved. No PEARL right now. Social hx: Non smoker. Allergies Allergy/AdvReac Type Severity Reaction Status Date / Time diclofenac AdvReac Vomiting Verified 03/06/20 16:00 Home Medications Medication Instructions Recorded Confirmed Type timolol maleate [Timoptic] 1 drp OPB BID 10/27/18 03/06/20 History aspirin 81 mg PO QAM 09/03/19 03/06/20 History atorvastatin 40 mg tablet 40 mg PO HS #90 tab 10/25/19 03/06/20 Rx nitroglycerin 400 mcg/spray 0.4 mg SUBLINGUAL Q5M PRN #4.9 g 10/25/19 03/06/20 Rx translingual isosorbide mononitrate 120 mg 60 mg PO QAM tab 11/15/19 03/06/20 History tablet,extended release 24 hr nifedipine 60 mg tablet,extended 60 mg PO QAM tab 11/15/19 03/06/20 History release 24 hr bisoprolol fumarate 10 mg PO QAM 01/08/20 03/06/20 History tramadol [Ultram] 50 mg PO Q4H PRN #8 tab 01/15/20 03/06/20 Rx gabapentin 300 mg PO DAILY PRN 03/06/20 03/06/20 History Patient History Medical History CAD (coronary artery disease) Mild to moderate non obstructive CAD per 2019 cath 40-50% proximal OM2 stenosis 30-40% ostial RCA Chronic kidney disease, stage 3a Diabetes mellitus, type 2 NO MEDICATIONS Hyperlipidemia Hypertension Malignant pleural effusion (~04/2019) S/p Pleurx catheter placement (but removed in 09/2019) Metastatic breast cancer (~08/2019) Initially dx'ed in 2012- s/p mastectomy with chemo. 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 Rajan 05/02/2019 at [facility] History of tonsillectomy Hx of left mastectomy (~02/15/12) Port-A-Cath in place (01/15/20) Insertion of Mediport Dr. Chan 01/15/2020 Family History Other Medical history non-contributory Social History Smoking Status: Never smoker Second Hand Exposure: No; Do You Dip or Chew Tobacco: No; Hx Alcohol Use: No Hx Substance Use: No Preferred Language: [place] Communication Ability: Effective Communication Tools: IPad Visual Impairment: No Limitations Hearing Ability: Hard of Hearing Contact Printer Dry Film Required: Yes, Video and Voice Beliefs That Will Affect Care: None marital status: / Current Living Situation: Alone current occupational status: retired Other Information That Helps Us Care for You: No Feels Safe at Home: Yes Safety Concerns: Feels Safe At This Time Dental Care, Regularly: Yes Physical Activity Frequency: Does not Exercise Seatbelt Use: always Sunscreen Use: Yes Assistive Devices: Oxygen - Continuous Review of Systems Review of Systems: All systems reviewed & are unremarkable except as noted in HPI & below Physical Exam Physical Exam: Constitutional: No acute distress HEENT: EOMI, PERRLA Respiratory system: Decreased air entry bilaterally, more decreased on the left, no wheeze, no rhonchi, positive crackles bilateral lower lobes CVS: S1-S2 positive, no murmurs or gallops Abdomen: Soft, nontender, nondistended, positive bowel sounds x4 Extremities: +2 pulses bilaterally radialis/ dorsalis pedis, no cyanosis, no edema Neuro: Awake alert oriented x3 Psych: Normal mood and affect G/U: No Love Skin: no rashes, warm and dry Lymphatic: no cervical or axillary lymphadenopathy Results & Data Results & Data ([facility]) Vital Signs (Past 12 Hours) Vital Signs Temp Pulse Resp BP Pulse Ox 03/07/20 07:39 36.9 C 83 16 138/76 90 03/06/20 15:51 03/07/20 07:46 PG Care Time/CCT Total # of Minutes Spent Total Time Spent with Patient: Total time spent is greater than 50% in coordination of care (as documented) at patient's floor/unit and/or counseling patient: Coding Level of Care Code 16534 Initial Inpt Care Lvl 3 Diagnoses Malignant pleural effusion J91.0 Acute respiratory failure with hypoxia J96.01
--- NOTE | 2020-03-07 15:51 | Procedure Note ---
Procedure Note Date of Service March 07, 2020 Procedure: Diagnostic therapeutic ultrasound-guided catheter thoracentesis Fudger: Dr. Ernie Vasquez Indication: Pleural effusion Consent: Signed by patient and verified with timeout prior to procedure Anesthesia: 1% lidocaine without epinephrine local. Procedure: Consent was verified and timeout performed. Appropriate imaging studies were reviewed prior to the procedure. Patient was placed in a seated position and limited thoracic ultrasound was performed of the left chest. See separate imaging. Appropriate site above the diaphragm for thoracentesis was selected. The skin was prepped and draped in normal sterile fashion. Lidocaine was used for local analgesia. Fluid was aspirated via the finder needle. A small skin josue was made with the scalpel and the catheter over the needle apparatus was advanced over the rib into the pleural space. Using the syringe one-way valve system, a total of 500 mL's of serous fluid was removed. Procedure was terminated due to pain. The catheter was removed and observed to be intact. A sterile dressing was applied. Post procedure chest x-ray was ordered. Fluid was sent for labs, culture and cytology. Complications: None Blood loss: None Coding CPT Codes Pulmonary/Thoracic - Pulmonary and Thoracic: 89541 Pleural drainage w/imaging ([id number]) [facility] Procedure Codes (Charges) Pulmonary/Thoracic Procedure 1: Pulmonary and Thoracic: 59818 Pleural drainage w/imaging
--- NOTE | 2020-03-07 17:01 | XRay Report ---
XR chest 1V portable HISTORY: 84 years-old Female s/p thora follow-up study in a patient with left pleural effusion. Stat us post thoracentesis. COMPARISON: Chest radiograph 03/07/2020 at 8:30 AM TECHNIQUE: Portable AP view of the chest FINDINGS: Unchanged positioning of the right subclavian [id number]-[id number] catheter. Healed remote bilateral rib fra ctures. Cardiac megaly with pulmonary vascular congestion and unchanged interstitial coarsening. Trac e right pleural effusion. Small left pleural effusion has decreased in size status post thoracentesis . Persistent left basilar consolidation. No postprocedural pneumothorax identified. Degenerative whitt ges of the shoulders and spine. IMPRESSION: 1. Decreased size of the left pleural effusion status post thoracentesis. No postprocedural pneumotho rax identified. 1. Persistent left greater than right bibasilar opacities. 3. Trace right pleural effusion. ACT 112: Negative or not required by law. The above report was generated using voice recognition software. It may contain grammatical, syntax o r spelling errors. Electronically signed by: Myron Walters M.D. 03/07/2020 5:00 PM
[2020-03-07] MEDS: LIDOCAINE 5% 1 PATCH TD SCH (17:48)
[2020-03-07] MEDS: ATORVASTATIN 40 MG TAB PO SCH (20:36)
[2020-03-07] MEDS ORDERED: LORazepam 0.5 MG TAB PO PRN (21:03)
[2020-03-08 06:18] LABS: Basophils # (auto) 0.01 K/uL (0-0.2); Basophils % (auto) 0.1 %; Hematocrit (blood only) 33.8 % (37-47); Hemoglobin 10.9 g/dL (12.0-16.0); Immature Granulocytes # (auto) 0.34 K/uL (0.00-0.02); Immature Granulocytes % (auto) 3.9 %; Lymphocytes # (auto) 0.71 K/uL (1.2-3.4); Lymphocytes % (auto) 8.1 %; Mean Corpuscular Hemoglobin 31.2 pg (25-34); Mean Corpuscular Hgb Conc 32.2 g/dL (32-36); Mean Corpuscular Volume 96.8 fL (80-100); Mean Platelet Volume 10.8 fL (7.4-10.4); Monocytes # (auto) 0.04 K/uL (0.11-0.59); Monocytes % (auto) 0.5 %; Neutrophils # (auto) 7.62 K/uL (1.4-6.5); Neutrophils % (auto) 87.4 %; Platelet Count 197 K/uL (130-400); RDW Coefficient of Variation 17.3 % (11.5-14.5); RDW Standard Deviation 61.4 fL (36.4-46.3); Red Blood Count 3.49 M/uL (4.2-5.4); White Blood Count 8.72 K/uL (4.8-10.8)
[2020-03-08 07:05] LABS: BUN Creatinine Ratio 20.2 (10-20); Creatinine Clr Calc Pharmacy 35.2 ml/min; Est GFR (African American) 58.8; Est GFR (Non-African American) 50.7; Potassium 3.3 mmol/L (3.5-5.1)
--- NOTE | 2020-03-08 07:50 | Hospitalist Progress Note ---
Date of Service March 08, 2020 Assessment & Plan (1) Pleural effusion, left: Pulmonary consult - in the ED case was discussed with pulm and she was given a dose of Lasix (2) Hypoxia: Sats 81% on RA in the ED following transfusion - had lasix in the ED now on 2L NC 90% Patient saw her pcp on 02/24 for fevers, sore throat, stuffy nose, ear pain, headache, body aches. She was tested for COVID and again tested in the ED, both negative CXR in the ED showed cardiomegaly with pulmonary edema. Small right and moderate left pleural effusions with bibasilar consolidations Pulm consulted (3) Metastatic breast cancer: Sees Dr. Mac. She was to have next chemotherapy on Tuesday. Dr. Mac made aware that patient is in the hospital. Consider consult with palliative care to establish goals. (4) Chronic kidney disease, stage 3a: Stable Avoid nephrotoxins where possible (5) Chest wall pain: Patient reports this is ongoing for a year. Will order Lidoderm patch. Continue home tramadol (6) Hypertension: Continue bisoprolol, nifedipine, (7) CAD (coronary artery disease): Continue isosorbide, bisoprolol, atorvastatin, asa (8) Hyperlipidemia: Continue atorvastatin (9) Headache: with visual changes. CT head in the ED without acute changes MRI brain without acute changes either - continues to show metastatic disease within the calvarium. 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 Recommend follow up with ophthalmology (10) DVT prophylaxis: SCDs - hold on chemoprophylaxis in case pullea would like to perform thoracentesis today Admission and Anticipated Discharge Date Admission Date: March 06, 2020 Physical Exam Physical Exam: General: no distress Eyes: normal inspection, PERLL Respiratory: chest non tender, clear to auscultation, normal breath sounds, no respiratory distress, no accessory muscle use Cardiac: regular rate and rhythm, no rub or gallop, no murmur, no edema, no jvd GI/: active bowel sounds, no abd pain or tenderness, soft, non distended Extremities: normal range of motion, normal strength, non tender Neuro/Psych: alert and oriented x 3, normal mood and affect, CN II - XII intact Skin: normal color, dry Results & Data Results & Data ([facility]) Vital Signs (Past 12 Hours) Vital Signs Temp Pulse Resp BP Pulse Ox 03/08/20 07:35 37.1 C 92 H 14 135/74 91 03/07/20 23:02 37.0 C 94 H 14 98/59 L 92 Laboratory Results Laboratory Results - last 24 hr 03/07/20 03/08/20 03/08/20 07:46 05:58 05:58 WBC 8.72 RBC 3.49 L Hgb 10.9 L Hct 33.8 L MCV 96.8 MCH 31.2 MCHC 32.2 RDW Std Deviation 61.4 H RDW Coeff of [place] 17.3 H Plt Count 197 MPV 10.8 H Immature Gran % (Auto) 3.9 Neut % (Auto) 87.4 Lymph % (Auto) 8.1 [place] % (Auto) 0.5 Eos % (Auto) 0.0 Baso % (Auto) 0.1 Neut # (Auto) 7.62 H Lymph # (Auto) 0.71 L [place] # (Auto) 0.04 L Eos # (Auto) 0.00 Baso # (Auto) 0.01 Immature Gran # (Auto) 0.34 H Sodium 140 139 Potassium 3.6 3.3 L Chloride 108 H 106 Carbon Dioxide 27 29 Anion Gap 5.0 4.0 BUN 19 H 20 H Creatinine 1.03 1.01 Est Cr Clr Drug Dosing 34.5 35.2 Est GFR ( Amer) 57.4 58.8 Est GFR (Non-Af Amer) 49.5 50.7 BUN/Creatinine Ratio 18.3 20.2 H Glucose 90 102 H Calcium 8.1 L 8.0 L Medications Administered Current Inpatient Medications Aspirin (Aspirin 81 Mg Ectab) 81 mg PO [facility] Stop: 04/06/20 08:59 Last Admin: 03/07/20 11:32 Dose: Not Given Documented by: Atorvastatin Calcium (Atorvastatin 40 Mg Tab) 40 mg PO [facility] Stop: 04/05/20 21:11 Last Admin: 03/07/20 20:36 Dose: 40 mg Documented by: Bisoprolol Fumarate (Bisoprolol [facility]ate 5 Mg Tab) [facility] Stop: 04/06/20 08:59 Last Admin: 03/07/20 11:32 Dose: Not Given Documented by: Gabapentin (Gabapentin 300 Mg Cap) 300 mg PO DAILY PRN PRN Reason: Pain Stop: 04/05/20 21:11 Last Admin: 03/07/20 09:57 Dose: 300 mg Documented by: Heparin Sodium (Porcine) (Heparin 100 Unit/Ml 5ml Flush) 5 ml FLUSH PRN PRN PRN Reason: Flush Stop: 04/05/20 22:58 Last Admin: 03/07/20 12:23 Dose: 5 ml Documented by: Isosorbide Mononitrate (Isosorbide [place] Extended Rel 60 Mg Tabcr) 60 mg PO QAM [facility] Stop: 04/06/20 08:59 Last Admin: 03/07/20 11:32 Dose: Not Given Documented by: Lidocaine (Lidocaine 5% 1 Patch) 1 patch TD DAILY [facility] Stop: 04/06/20 14:59 Last Admin: 03/07/20 17:48 Dose: Not Given Documented by: Lorazepam (Lorazepam 0.5 Mg Tab) 0.5 mg PO HS PRN PRN Reason: Anxiety Stop: 04/06/20 21:02 Miscellaneous (Remove Lidoderm Patch) 1 ea N/A DAILY@2100 [facility] Stop: 04/06/20 20:59 Last Admin: 03/07/20 21:04 Dose: Not Given Documented by: Nifedipine (Nifedipine Extended Rel 30 Mg Tabcr) [facility] Stop: 04/06/20 08:59 Last Admin: 03/07/20 09:57 Dose: 60 mg Documented by: Nitroglycerin (Nitroglycerin Sl 0.4 Mg/Tab Tab) 0.4 mg SL Q5M PRN PRN Reason: chest pain Stop: 04/05/20 21:26 Timolol Maleate (Timolol Gfs 0.5% Oph Soln 74 Drops/5 Ml Btl) [facility] drops [facility] Stop: 04/06/20 08:59 Last Admin: 03/07/20 09:58 Dose: 1 drops Documented by: Tramadol HCl (Tramadol Hcl 50 Mg Tablet) 50 mg PO Q4H PRN PRN Reason: pain Stop: 04/05/20 21:11 Last Admin: 03/07/20 02:44 Dose: 50 mg Documented by: PG Care Time/CCT Total # of Minutes Spent Total Time Spent with Patient: Total time spent is greater than 50% in coordination of care (as documented) at patient's floor/unit and/or counseling patient: Coding Diagnoses Pleural effusion, left J90 Hypoxia R09.02 Metastatic breast cancer C50.919 Chronic kidney disease, stage 3a N18.3 Chest wall pain R07.89 Hypertension I10 CAD (coronary artery disease) I25.10 Hyperlipidemia E78.5 Headache R51.9 DVT prophylaxis Z29.9
[2020-03-08] MEDS: HEPARIN 100 UNIT/ML 5ML FLUSH FLUSH PRN (08:34)
[2020-03-08] MEDS: TIMOLOL GFS 0.5% OPH SOLN 74 DROPS/5 ML BTL OPB SCH (08:39)
[2020-03-08] MEDS: ASPIRIN 81 MG ECTAB PO SCH (08:39)
[2020-03-08] MEDS: ISOSORBIDE MONO EXTENDED REL 60 MG TABCR PO SCH (08:39)
[2020-03-08] MEDS: NIFEdipine EXTENDED REL 30 MG TABCR PO SCH (08:39)
[2020-03-08] MEDS: BISOPROLOL FUMARATE 5 MG TAB PO SCH (08:39)
[2020-03-08] MEDS: LIDOCAINE 5% 1 PATCH TD SCH (08:40)
--- NOTE | 2020-03-08 08:42 | XRay Report ---
XR chest 1V portable HISTORY: 84 years-old Female f/u follow-up study in a patient with left pleural effusion COMPARISON: Chest radiograph 03/07/2020 TECHNIQUE: Portable AP view of the chest FINDINGS: Unchanged positioning of the right subclavian Mbgpfe-a-Rhhl catheter. Healed remote bilateral rib fra ctures. Cardiomegaly with pulmonary vascular congestion and stable interstitial coarsening. Trace rig ht and small left pleural effusions. There is mildly improved aeration of the left lung base with mil d persistent left greater than right bibasilar densities. No pneumothorax. Degenerative changes of th e shoulders and spine. IMPRESSION: 1. Small left and trace right pleural effusions with mildly improved aeration of the left lung base. 2. No pneumothorax. ACT 112: Negative or not required by law. The above report was generated using voice recognition software. It may contain grammatical, syntax o r spelling errors. Electronically signed by: Myron Walters M.D. 03/08/2020 8:40 AM
[2020-03-08] MEDS ORDERED: Nursing to Pharmacy Communication SCH (09:00)
[2020-03-08] MEDS ORDERED: ASPIRIN 81 MG ECTAB PO SCH (11:30)
--- NOTE | 2020-03-08 16:11 | Pulmonology Progress Note ---
Date of Service March 08, 2020 Assessment & Plan (1) Malignant pleural effusion: CXR: Increased vascular markings with b/l pleural effusion -- Acute hypoxic respiratory failure multifactorial likely secondary fluid overload with a component of pleural effusion c/w diuresis. Keep the patient negative balance. Status post thoracentesis 03/07/2020 removal of 500 mL serous fluid c/w O2 supplementation to keep oxygen > 88% Plan: S/p thoracentesis 03/07/2020, final mL of serous fluid removed. Patient today feeling better. Denies any significant chest pain. Okay supplementation prior to discharge. No further recommendation from pulmonary perspective. Please note the above document was generated using voice recognition software. It may contain grammatical, syntax or spelling errors.Any formal questions or concerns about the content, text or information contained within the body of this dictation should be directly addressed to the provider for clarification. (2) Acute respiratory failure with hypoxia: Admission and Anticipated Discharge Date Admission Date: March 06, 2020 Subjective Patient seen and examined at bedside. No acute distress, no adverse events overnight. Denies any chest pain. Does complain of cough with yellow phlegm. No hemoptysis. Shortness of breath is improved compared to before. No fever or chills. Review of Systems Review of Systems: All systems reviewed & are unremarkable except as noted in Subjective Physical Exam Physical Exam: Constitutional: No acute distress HEENT: EOMI, PERRLA Respiratory system: Decreased air entry bilaterally, more decreased on the left, no wheeze, no rhonchi, positive crackles bilateral lower lobes CVS: S1-S2 positive, no murmurs or gallops Abdomen: Soft, nontender, nondistended, positive bowel sounds x4 Extremities: +2 pulses bilaterally radialis/ dorsalis pedis, no cyanosis, no edema Neuro: Awake alert oriented x3 Psych: Normal mood and affect G/U: No Love Skin: no rashes, warm and dry Lymphatic: no cervical or axillary lymphadenopathy Results & Data Results & Data ([facility]) Vital Signs (Past 12 Hours) Vital Signs Temp Pulse Pulse Pulse Pulse Pulse Pulse 03/08/20 12:35 37.1 C 82 92 H 03/08/20 09:54 101 H 113 H 105 H 102 H 03/08/20 07:35 37.1 C 92 H Resp Resp Resp Resp Resp BP Pulse Ox 03/08/20 12:35 14 135/74 91 03/08/20 09:54 22 22 20 20 03/08/20 07:35 14 135/74 91 Pulse Ox Pulse Ox Pulse Ox Pulse Ox 03/08/20 12:35 03/08/20 09:54 91 85 L 92 92 03/08/20 07:35 03/08/20 05:58 03/08/20 05:58 PG Care Time/CCT Total # of Minutes Spent Total Time Spent with Patient: Total time spent is greater than 50% in coordination of care (as documented) at patient's floor/unit and/or counseling patient: Coding Level of Care Code 51625 Subseq Hosp Care Lvl 3 Diagnoses Malignant pleural effusion J91.0 Acute respiratory failure with hypoxia J96.01
[2020-03-08] MEDS ORDERED: NIFEdipine EXTENDED REL 30 MG TABCR PO SCH (16:30)
[2020-03-08] MEDS ORDERED: ISOSORBIDE MONO EXTENDED REL 60 MG TABCR PO SCH (16:30)
--- NOTE | 2020-03-08 16:50 | Discharge Summary ---
Date of Service March 08, 2020 Admission HPI Per Admitting Provider This patient speaks broken [place] and due to language barrier the history was supplemented by her son who was present at bedside. This is an 84-year-old female with a history of breast cancer. Patient is currently receiving chemotherapy treatments. Her most recent treatment was 2 days ago. It is noted that her next chemotherapy session is due in approximately 1 week. Patient was receiving a blood transfusion today and was noted to be hypoxic in the treatment unit and was therefore referred to the emergency department for further evaluation. Patient has noted some decreased energy and fatigue, hypoxia, and shortness of breath with activity. It is noted that her appetite has been poor but there has been no nausea, vomiting, or reported abdominal pain. She did suffer a fall several days ago where she landed on her left side. She did not sustain any noted injuries but has some still residual soreness of the left side and her ribs. No weight loss has been reported. Since arrival to the emergency department the patient does complain of "floating spots" in both eyes. No visual loss has been reported though. In the emergency department the patient had a Covid test that was noted to be negative. CBC revealed a white blood cell count and platelet count both within the normal range. Her hemoglobin and hematocrit were 11.2 and 33.9. It is noted that these values were performed after her blood transfusion today and hemoglobin hematocrit 2 days ago was 7.7 and 24.5. Chemistry profile revealed a sodium and potassium within the normal range her creatinine was normal at 1.1. A chest x-ray showed a small amount of pulmonary edema along with a moderate left pleural effusion and a small right pleural effusion. An EKG showed normal sinus rhythm without acute ischemic changes. It is noted that the patient did undergo a left ultrasound-guided thoracentesis by Dr. Vieira on 05/02/2019. Cytology from this fluid revealed findings consistent with metastatic carcinoma. Since this procedure the patient does not report having any additional pleural drainage procedures. At the time of my exam she was resting comfortably in bed and did not appear to be in any distress. Principal Diagnosis Malignant Pleural Effusion with Hypoxia Discharge Exam Constitutional: WD/WN, vitals as above Respiratory: Effort normal, scattered rhonchi, no wheeze appreciated CV: RRR, no murmur, no edema Abdomen: normal bowel sounds, soft, nontender, no hepatosplenomegaly Discharge Data Allergies Allergy/AdvReac Type Severity Reaction Status Date / Time diclofenac AdvReac Vomiting Verified 03/06/20 16:00 Consultations 03/06/20 17:12 ED Decision to Admit Stat 03/06/20 21:12 Consult Pulmonology Routine Ordered Studies 03/06/20 17:12 CT head/brain wo con Stat 03/07/20 08:00 US point of care ultrasound Urgent 03/07/20 12:07 MR brain wo/w con Stat Hospital Course (1) Pleural effusion, left: Pulmonary Service. Thoracentesis was performed on March 07, 2020 with removal 500 mL of serous fluid cleared. The patient's hypoxia and chest pain improved after the procedure. Patient was considered to be likely secondary to fluid overload and improved with Lasix during her hospital stay. Continuing diuresis and dietary controls, low-salt diet. Patient will follow up with her Pulmonary Service and primary care physician. Scheduled for her next treatments with Oncology. (2) Hypoxia: Sats 81% on RA in the ED following transfusion - had lasix in the ED now on 2L NC 90% Patient saw her pcp on 02/24 for fevers, sore throat, stuffy nose, ear pain, headache, body aches. She was tested for COVID and again tested in the ED, both negative CXR in the ED showed cardiomegaly with pulmonary edema. Small right and moderate left pleural effusions with bibasilar consolidations Pulmonary was consulted during the hospital stay and refer to above procedure for her pleural effusion. Has done quite well on 2 L nasal cannula and will be discharged home with 2 L nasal cannula for ambulation and activities. A regions made by case management. (3) Metastatic breast cancer: Sees Dr. Mac. She was to have next chemotherapy on Tuesday. Dr. Mac made aware that patient is in the hospital. Plan follow-up as scheduled with Dr. Mac for ongoing care and treatment. (4) Chronic kidney disease, stage 3a: Stable Avoid nephrotoxins where possible (5) Chest wall pain: Patient reports this is ongoing for a year. Will order Lidoderm patch. Continue home tramadol (6) Hypertension: Continue bisoprolol, nifedipine, No changes during her hospital stay. (7) CAD (coronary artery disease): Continue isosorbide, bisoprolol, atorvastatin, asa (8) Hyperlipidemia: Continue atorvastatin (9) Headache: with visual changes. CT head in the ED without acute changes MRI brain without acute changes either - continues to show metastatic disease within the calvarium. 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 Total Time Total Time Spent Total Time Spent (In Minutes): 40 Total Time Includes: Examination of the Patient, Discharge Planning, Medication Reconciliation and Other (communication and discussion with Son and patient) Discharge Plan Discharge Items Patient Disposition: Home - Self-Care Reason For Visit: PLEURAL EFFUSION Discharge Diagnosis: Left Pleural Effusion with Hypoxia Condition on Discharge: Fair Activity: Resume your previous activity Non-emergency contact: Primary Care Provider Call non-emergency contact if: you have any medication questions, your symptoms worsen and you have a fever Follow-up/Referrals: Carlyle Mac DO [Physician] - 04/07/20 Kingston Garcia DO [Primary Care Provider] - 03/12/20 Ernie Vasquez MD [Physician] - 03/27/20 Diet: Regular Addtl Attending Provider Instructions: During her hospital stay were treated for left pleural effusion, undergoing a procedure by her pulmonary doctor. Her symptoms of hypoxia and fatigue have improved with 2 L of oxygen which will be provided for you in the home. Is important that you continue to increase her activity, eat a regular diet, and continue all your current medications. During her hospital stay her potassium was slightly low and recommend increasing her potassium in your foods at home. Continue your oxygen and follow-up with Pulmonary and your primary care physician to further evaluate the long-term needs of oxygen. Pending Studies at Discharge: No Stand-Alone Forms: [facility] Medications and DC Order Prescriptions: Continued nifedipine 60 mg tablet extended release 24hr 60 mg PO QAM RF: 0 atorvastatin [Lipitor] 40 mg tablet 40 mg PO HS Qty: 90 RF: 3 nitroglycerin 400 mcg/spray spray,non-aerosol 0.4 mg sublingual Q5M PRN (Reason: chest pain) Qty: 4.9 RF: 3 timolol maleate [Timoptic] 0.5 % drops 1 drp OPB BID RF: 0 gabapentin 300 mg Capsule 300 mg PO DAILY PRN (Reason: Pain) RF: 0 aspirin 81 mg tablet,delayed release (DR/EC) 81 mg PO QAM RF: 0 isosorbide mononitrate 120 mg tablet extended release 24 hr 60 mg PO QAM RF: 0 bisoprolol fumarate 10 mg tablet 10 mg PO QAM RF: 0 tramadol [Ultram] 50 mg tablet 50 mg PO Q4H PRN (Reason: pain) Qty: 8 RF: 0 Discharge Orders: Discharge Order (Routine); Ordered 03/08/20 Ordered By: Manuel Donald Admission Data Admit Date/Time: 03/06/20 18:27 Attending Provider: Manuel Donald Admit Provider: Jefferson Deng Primary Care Provider: Kingston Garcia Other Providers: Ernie Vasquez ; Manuel Donald Other Interventions: Discharge Summary Assessment (RN) Last Done: 03/08/20 12:35 Coding Level of Care Code D/C Day Management >30 mins Diagnoses Pleural effusion, left J90 Hypoxia R09.02 Metastatic breast cancer C50.919 Chronic kidney disease, stage 3a N18.3 Chest wall pain R07.89 Hypertension I10 CAD (coronary artery disease) I25.10 Hyperlipidemia E78.5 Headache R51.9
== END 2020-03-08 13:35 | disposition home or self-care (01) | DRG 597 ==
LOC: ED 14:57 → SUATTDRO 18:27 → 3N 18:27